=== PATIENT | female | born 1945 | race Caucasian/White ===

== ENCOUNTER → 2017-11-16 07:18 | Outpatient (CLI) | payer MEDICARE, BC, SELFPAY ==
[2017-11-16 10:25] LABS: Absolute Lymphocyte Count 2.52 X10^3/ul (0.83-4.51); Absolute Neutrophil Count 4.4 X10^3/uL (2.0-7.7); Basophil# 0.04 X10^3/uL; Basophil% 0.5 % (0-1); Eosinophil# 0.19 X10^3/uL; Eosinophils% 2.4 % (0-5); Hemoglobin 14.4 g/dl (12.0-15.0); Lymphocyte # 2.52 X10^3/ul (4.0); Lymphocyte % 32.4 % (19-41); Mean Corp Hgb Conc 33.5 g/gl (32-36); Mean Corpuscular Hgb 28.7 pg (27.0-32.0); Mean Corpuscular Volume 85.8 fL (81-99); Mean Platelet Vol. 10.7 fl (6.2-12.0); Monocyte# 0.62 X10^3/uL; Neutrophil # 4.39 X10^3/uL (2.7-7.7); Neutrophil % 56.6 % (47-70); Platelet Count 193 K/mm3 (150-450); RBC Distribution Width CV 13.8 % (11.6-14.6); RBC Distribution Width SD 43.2 fl (35.1-43.9); Red Blood Count 5.01 M/mm3 (4.2-5.4); White Blood Count 7.8 K/mm3 (4.4-11.0)
[2017-11-16 10:28] LABS: POSITIVE COUNT NO; POSITIVE DIFFERENTIAL NO; POSITIVE MORPHOLOGY NO
[2017-11-16 10:42] LABS: ALB/GLOB Ratio 0.9 RATIO (0.9-2.4); AST(SGOT) 25 U/L (15-37); Alanine Aminotransfer ALT/SGPT 53 U/L (13-56); Albumin, Serum 3.8 g/dL (3.2-5.0); Alkaline Phosphatase 99 U/L (45-117); Anion Gap 12 (5-15); BUN 18 mg/dL (7-18); BUN/Creat Ratio 21.1 RATIO (10-20); Calcium,Total 9.8 mg/dL (8.5-10.1); Chloride 97 mmol/L (98-107); Cholesterol 170 mg/dL (200); Creatinine, Serum 0.86 mg/dL (0.55-1.02); EST Glomerular Filtration Rate 70 mL/min (>60); Est Glom Filt Rate - Afr Amer 84 mL/min (>60); Globulin 4.1 g/dL (2.2-4.2); Glucose 230 mg/dL (74-106); High Density Lipoprotein 38 mg/dL; Potassium 3.9 mmol/L (3.5-5.1); Protein, Total 7.9 g/dL (6.4-8.2); Sodium Level 135 mmol/L (136-145); Triglycerides 194 mg/dL; Very Low Density Lipoprotein 39 mg/dL (5-40)
[2017-11-16 11:19] LABS: HIV - WCH Non-Reactive (Nonreactive)
[2017-11-16 14:04] LABS: Chlamydia Trachomatis by PCR Negative (Negative); Neisserai gonorrhoeae by PCR Negative (Negative); Probe Check PASS; Sample Adequacy Control PASS; Specimen Processing Control PASS
[2017-11-18 01:18] LABS: Rapid Plasmin Reagin (RPR) NONREACTIVE (NONREACTIVE)
== END ==
PROVIDERS: Family Provider Family Medicine; PCP Family Medicine; Visit Provider Family Medicine
DX: E11.65 Type 2 diabetes mellitus with hyperglycemia (principal); I10 Essential (primary) hypertension; E78.5 Hyperlipidemia, unspecified; R53.83 Other fatigue; Z20.9 Contact with and (suspected) exposure to unspecified communicable disease
CPT/HCPCS: 36415; 80053; 80061; 85025; 86592; 86703; 87491; 87591

== ENCOUNTER → 2019-02-07 07:02 | Outpatient (CLI) | payer MEDICARE, BC, SELFPAY ==
[2019-02-07 10:03] LABS: Absolute Lymphocyte Count 1.82 X10^3/uL (0.83-4.51); Basophil# 0.07 X10^3/uL; Eosinophil# 0.26 X10^3/uL; Eosinophils% 3.8 % (0-5); Hematocrit 42.2 % (37-47); Lymphocyte # 1.82 X10^3/ul (4.0); Lymphocyte % 26.6 % (19-41); Mean Corp Hgb Conc 33.2 g/dL (32-36); Mean Corpuscular Hgb 28.5 pg (27.0-32.0); Mean Corpuscular Volume 85.9 fL (81-99); Mean Platelet Vol. 10.7 fl (6.2-12.0); Monocyte# 0.69 X10^3/uL; Monocyte% 10.1 % (0-10); NRBC Flagged by Analyzer 0 % (0-5); Neutrophil # 3.97 X10^3/uL (2.7-7.7); Neutrophil % 58.2 % (47-70); Platelet Count 218 K/mm3 (150-450); RBC Distribution Width SD 43.8 fl (35.1-43.9); Red Blood Count 4.91 M/mm3 (4.2-5.4); White Blood Count 6.8 K/mm3 (4.4-11.0)
[2019-02-07 10:17] LABS: ALB/GLOB Ratio 1.2 RATIO (0.9-2.4); AST(SGOT) 17 U/L (15-37); Alanine Aminotransfer ALT/SGPT 29 U/L (13-56); Alkaline Phosphatase 91 U/L (45-117); Anion Gap 8 (5-15); BUN 21 mg/dL (7-18); BUN/Creat Ratio 25.4 RATIO (10-20); Calcium,Total 9.4 mg/dL (8.5-10.1); Chloride 101 mmol/L (98-107); Cholesterol 208 mg/dL (200); Creatinine, Serum 0.83 mg/dL (0.55-1.02); EST Glomerular Filtration Rate 72 mL/min (>60); Est Glom Filt Rate - Afr Amer 87 mL/min (>60); Globulin 3.3 g/dL (2.2-4.2); Glucose 153 mg/dL (74-106); High Density Lipoprotein 46 mg/dL; Potassium 3.9 mmol/L (3.5-5.1); Protein, Total 7.3 g/dL (6.4-8.2); Sodium Level 134 mmol/L (136-145); Triglycerides 108 mg/dL; Very Low Density Lipoprotein 22 mg/dL (5-40)
[2019-02-07 10:38] LABS: Microalbumin,Random Urine 13.1 mg/L (NO RANGE EST.); Microalbumin:Creatinine Ratio 15.5 mg/g CRE (<30 mg/g CRE)
== END ==
PROVIDERS: Family Provider Family Medicine; PCP Family Medicine; Referring Provider Family Medicine; Visit Provider Family Medicine
DX: E78.5 Hyperlipidemia, unspecified (principal); E11.9 Type 2 diabetes mellitus without complications; Z51.81 Encounter for therapeutic drug level monitoring
CPT/HCPCS: 36415; 80053; 80061; 82043; 82570; 83036; 85025

== ENCOUNTER → 2020-02-06 11:23 | Outpatient (CLI) | payer MEDICARE, BC, SELFPAY ==
[2020-02-06 15:54] LABS: Vitamin B12 1890 pg/mL (211-911)
[2020-02-06 15:58] LABS: Hemoglobin A1c 6.3 % (3.8-5.6)
[2020-02-06 16:02] LABS: ALB/GLOB Ratio 1.2 RATIO (0.9-2.4); AST(SGOT) 15 U/L (15-37); Alanine Aminotransfer ALT/SGPT 29 U/L (13-56); Albumin, Serum 4.1 g/dL (3.2-5.0); Alkaline Phosphatase 83 U/L (45-117); Anion Gap 9 (5-15); BUN 15 mg/dL (7-18); BUN/Creat Ratio 23.2 RATIO (10-20); CRP < 2.90 mg/L (0.0-3.0); Calcium,Total 9.4 mg/dL (8.5-10.1); Chloride 98 mmol/L (98-107); Cholesterol 198 mg/dL (200); Creatinine, Serum 0.65 mg/dL (0.55-1.02); EST Glomerular Filtration Rate 95 mL/min (>60); Est Glom Filt Rate - Afr Amer 115 mL/min (>60); Globulin 3.5 g/dL (2.2-4.2); Glucose 140 mg/dL (74-106); High Density Lipoprotein 53 mg/dL; Iron 97 ug/dL (50-170); Potassium 3.7 mmol/L (3.5-5.1); Protein, Total 7.6 g/dL (6.4-8.2); Sodium Level 132 mmol/L (136-145); Triglycerides 130 mg/dL; Very Low Density Lipoprotein 26 mg/dL (5-40)
[2020-02-06 17:34] LABS: Erythrocyte Sedimentation Rate 27 mm/hr (0-30)
== END ==
PROVIDERS: PCP Family Medicine; Visit Provider Family Medicine
DX: E11.9 Type 2 diabetes mellitus without complications (principal); E78.5 Hyperlipidemia, unspecified; D64.9 Anemia, unspecified; M25.50 Pain in unspecified joint
CPT/HCPCS: 36415; 80053; 80061; 82607; 83036; 83540; 84550; 85652; 86140

== ENCOUNTER 2021-05-28 16:38 | Inpatient (IN) | payer MEDICARE, BC, SELFPAY ==
[2021-05-28 16:42] VITALS: BP 210/95; PULSE 92; RESP 14; TEMP 36.4; O2SAT 98; BMI 37.0
--- NOTE | 2021-05-28 16:47 | EKG12_ITS ---
Test Reason : Blood Pressure : / mmHG Vent. Rate : 079 BPM Atrial Rate : 079 BPM P-R Int : 130 ms QRS Dur : 074 ms QT Int : 390 ms P-R-T Axes : -15 000 038 degrees QTc Int : 447 ms Normal sinus rhythm Normal ECG No previous ECGs available Confirmed by ALFRED MENDEZ, VIKAS ([id number]), editorial clerk TONO PELAEZ ([id number]) on 05/29/2021 2:47:42 PM Referred By: DANILO Confirmed By:VIKAS SIMON MD
--- NOTE | 2021-05-28 17:10 | NURSING ---
NO OLD EKGS
--- NOTE | 2021-05-28 17:20 | CT_ITS ---
STUDY: CT BRAIN WITHOUT CONTRAST REASON FOR EXAM: Female, 75 years old. confusion TECHNIQUE: Transaxial CT imaging of the brain was performed without administration of intravenous contrast material. Individualized dose optimization techniques were used for this CT. COMPARISON: None FINDINGS: Normal calvarium. Normal soft tissues. Normal size ventricles and extra-axial spaces for the patient''s age. There are areas of decreased attenuation within the white matter tracts of the supratentorial brain, consistent with microvascular disease changes. 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 Normal basal ganglia and thalami. Normal brainstem. Normal cerebellum. There is no intracranial hemorrhage. There are no findings of an acute ischemic infarction. Normal visualized paranasal sinuses. ASPECTS 10 CT/Brain/Head without Contrast IMPRESSION: There are no acute intracranial findings. Electronically Signed: Vitor García MD at 17:49 EDT ,
[2021-05-28 17:21] VITALS: BP 169/76; PULSE 76; RESP 19; O2SAT 97
--- NOTE | 2021-05-28 17:26 | EDS_ITS ---
HPI <TATE Guardado - Last Filed: 05/28/21 19:35> History of Present Illness Chief Complaint: Neuro S/Sx Narrative Narrative: 75-year-old female with history of hypertension, diabetes presents to the emergency department with complaints of bilateral hand numbness, right leg weakness, per her son, she is slower to respond than usual. Patient did receive Avastin injectable into her left eye on Tuesday, patient states that yesterday around 12 PM, she developed bilateral hand numbness, per the son, she was having right leg weakness which was giving out. Patient also has been having more confusion-like symptoms since yesterday at noon. Per her son, she is normally very smart, alert or x4, he states that she is hard to have a conversation with, gets confused easily. She denies any fevers chills nausea vomiting. Denies any trauma. PFSH <TATE Guardado - Last Filed: 05/28/21 19:35> PFSH Medical History Diabetes Hypertension Non-smoker Home Medications atenolol 25 mg PO BID 05/28/21 [History Last Taken 05/28/21] glimepiride 4 mg PO DAILY 05/28/21 [History Last Taken 05/28/21] metformin 1,000 mg PO BID 05/28/21 [History Last Taken 05/28/21] sitagliptin [Januvia] 100 mg PO DAILY 05/28/21 [History Last Taken 05/28/21] triamterene-hydrochlorothiazid 1 cap PO DAILY 05/28/21 [History Last Taken ] Allergy/AdvReac Type Severity Reaction Status Date / Time No Known Allergies Allergy Verified 05/28/21 16:44 Social History Smoking Status: Never smoker ROS <TATE Guardado - Last Filed: 05/28/21 19:35> ROS ED ROS Narrative Constitutional: Negative for fever, chills, weight loss or gain. Positive for weakness Eyes: Negative for vision loss, vision change, double vision ENT: Negative for any hearing changes, ringing in the ears, discharge, pain Nose: Negative for any congestion, runny nose, sinus pain, allergies Throat: Negative for any sore throat, swelling, voice changes, Cardiovascular: Negative for any chest pain, tightness, palpitations, racing heartbeat Respiratory: Negative for any cough, sputum production, hemoptysis, shortness of breath, shortness of breath on exertion, Gastrointestinal: Negative for any abdominal pain, nausea, vomiting, diarrhea, constipation, blood in stool, blood in vomit : Negative for any urinary frequency, incontinence, dysuria, retention, blood in urine Muscle skeletal: Negative for any muscle joint pain, stiffness, myalgias, arthralgias, neck pain, back pain Neurological: Negative for any headache, dizziness, syncope. Positive for numbness, tingling to bilateral hands, right leg weakness, slow to respond, more confusion Skin: Negative for any rashes, lumps, itching, abrasions, lacerations Psychiatric: Negative for any depression, anxiety, stress, suicidal ideation, homicidal ideation Hematologic: Negative for any easy bruising, excessive bruising, easy bleeding Allergies: Negative for any eczema, hives, rash EXAM <TATE Guardado - Last Filed: 05/28/21 19:35> Physical Exam Narrative Exam Narrative: Patient does arrive alert and oriented, patient does appear slow to respond and is vague with her details. Per the son, this is not like her normal she is very talkative and on top of things. Const Vital Signs: 05/28/21 16:42 05/28/21 17:21 05/28/21 18:45 Temperature 97.6 F L Temperature Source Temporal Pulse Rate 92 76 79 Respiratory Rate 14 19 H 22 H Blood Pressure 210/95 H 169/76 H 189/95 H Blood Pressure Mean 133 107 126 Pulse Ox 98 97 99 Oxygen Delivery Method Room Air Room Air Room Air Positive well nourished and well developed General Appearance ED: well developed HEENT Reports moist mucous membranes Eyes PERRL and EOMs intact bilaterally Eyes Narrative: Negative for any palsy Neck no lymphadenopathy and supple Chest Wall inspection of chest normal and palpation of chest normal Resp normal respiratory effort and clear to auscultation bilaterally Cardio regular rate, regular rhythm and no murmurs GI normal to inspection, nondistended, normoactive bowel sounds, non-tender and non-distended Inspection: abdominal distention Palpation: soft Back/Spine no CVA tenderness Extremity normal to inspection Extremity Narrative: Patient is full range of motion of her upper and lower extremities. Neuro oriented x3, CN's II-XII intact bilaterally and moves all extremities Neuro Narrative: Patient is alert oriented x3 however she is slow to respond, a poor historian which per her son is abnormal, neurological exam was completed, NIH score of 1 for the aphasia Sensorium / Orientation: alert Meningeal Signs: no meningeal signs Cranial Nerves: CN normal except as noted Coordination / Balance: [id number] test normal and [id number] test normal Speech: speech normal Psych mental status grossly normal Skin no rashes or lesions noted <Dr. Tracy Kay MD - Last Filed: 05/28/21 19:37> Physical Exam Const Vital Signs: 05/28/21 16:42 05/28/21 17:21 05/28/21 18:45 Temperature 97.6 F L Temperature Source Temporal Pulse Rate 92 76 79 Respiratory Rate 14 19 H 22 H Blood Pressure 210/95 H 169/76 H 189/95 H Blood Pressure Mean 133 107 126 Pulse Ox 98 97 99 Oxygen Delivery Method Room Air Room Air Room Air [facility] <TATE Guardado - Last Filed: 05/28/21 19:35> [facility] MDM Narrative Medical decision making narrative: Patient appears confused, vital signs are stable. Patient presents to the emergency department with complaints of bilateral hand numbness, altered mental status as well as right leg weakness. Patient did receive a full neurological work-up. Patient's laboratory studies showed a normal CBC, patient's BMP showed a slight hyponatremia with a sodium of 132, patient's urinalysis was negative for any infection. Patient did receive a CT scan of the brain which showed no acute intracranial findings, patient had normal examination of the chest. Patient did have a total NIH of 1 just for the aphasia during initial exam. Patient on reexam had NIH score of 0. Patient was slightly hypertensive with a blood pressure of 189/90. I do believe the patient needs to be admitted to the hospital for this altered mental status, paresthesias. Patient will be admitted to PCU for observation for CVA versus TIA, paresthesias, altered mental status. Patient is stable for admission. Lab Data Labs: Laboratory Results - last 24 hr 05/28/21 05/28/21 05/28/21 17:08 17:08 17:08 WBC 7.9 RBC 4.86 Hgb 13.9 Hct 40.6 MCV 83.5 MCH 28.6 MCHC 34.2 RDW Std Deviation 41.9 RDW Coeff of Anh 13.6 Plt Count 225 MPV 11.0 Immature Gran % (Auto) 0.400 Neut % (Auto) 62.5 Lymph % (Auto) 26.3 [place] % (Auto) 9.1 Eos % (Auto) 0.9 Baso % (Auto) 0.8 Absolute Neuts (auto) 4.9 Absolute Lymphs (auto) 2.07 Nucleated RBC % 0 PT 13.1 INR 1.1 APTT 25.8 Sodium 132 L Potassium 4.1 Chloride 98 Carbon Dioxide 26.0 Anion Gap 8 BUN 18 Creatinine 0.79 Estim Creat Clear Calc 35.45 Est GFR (MDRD) Af Amer 92 Est GFR (MDRD) Non-Af 76 BUN/Creatinine Ratio 22.9 H Glucose 153 H Calcium 9.4 Urine Color Urine Clarity Urine pH Ur Specific [place] Urine Protein Urine Glucose (UA) Urine Ketones Urine Occult Blood Urine Nitrite Urine Bilirubin Urine Urobilinogen Ur Leukocyte Esterase Urine RBC Urine WBC Ur Squamous Epith Cells Urine Bacteria Urine Mucus POC Glucose 05/28/21 05/28/21 17:59 18:30 WBC RBC Hgb Hct MCV MCH MCHC RDW Std Deviation RDW Coeff of Anh Plt Count MPV Immature Gran % (Auto) Neut % (Auto) Lymph % (Auto) [place] % (Auto) Eos % (Auto) Baso % (Auto) Absolute Neuts (auto) Absolute Lymphs (auto) Nucleated RBC % PT INR APTT Sodium Potassium Chloride Carbon Dioxide Anion Gap BUN Creatinine Estim Creat Clear Calc Est GFR (MDRD) Af Amer Est GFR (MDRD) Non-Af BUN/Creatinine Ratio Glucose Calcium Urine Color Yellow Urine Clarity Clear Urine pH 6.5 Ur Specific [place] 1.015 Urine Protein 15 H Urine Glucose (UA) Normal Urine Ketones 5 H Urine Occult Blood Negative Urine Nitrite Negative Urine Bilirubin Negative Urine Urobilinogen Normal Ur Leukocyte Esterase Negative Urine RBC 0 SEEN Urine WBC 0 SEEN Ur Squamous Epith Cells 0-5 SEEN Urine Bacteria 0 SEEN Urine Mucus 0 SEEN POC Glucose 146 H Radiography Diagnostic Testing: Clinical Impression(s) from Imaging Studies Brain CT 05/28/21 17:20 IMPRESSION: There are no acute intracranial findings. Electronically Signed: Vitor García MD at 17:49 EDT , Chest X-Ray 05/28/21 19:00 IMPRESSION: Normal x-ray examination of the chest. Electronically Signed: Anthony Minor MD at 19:24 EDT , <Dr. Tracy Kay MD - Last Filed: 05/28/21 19:37> [facility] Lab Data Labs: Laboratory Results - last 24 hr 05/28/21 05/28/21 05/28/21 17:08 17:08 17:08 WBC 7.9 RBC 4.86 Hgb 13.9 Hct 40.6 MCV 83.5 MCH 28.6 MCHC 34.2 RDW Std Deviation 41.9 RDW Coeff of Anh 13.6 Plt Count 225 MPV 11.0 Immature Gran % (Auto) 0.400 Neut % (Auto) 62.5 Lymph % (Auto) 26.3 [place] % (Auto) 9.1 Eos % (Auto) 0.9 Baso % (Auto) 0.8 Absolute Neuts (auto) 4.9 Absolute Lymphs (auto) 2.07 Nucleated RBC % 0 PT 13.1 INR 1.1 APTT 25.8 Sodium 132 L Potassium 4.1 Chloride 98 Carbon Dioxide 26.0 Anion Gap 8 BUN 18 Creatinine 0.79 Estim Creat Clear Calc 35.45 Est GFR (MDRD) Af Amer 92 Est GFR (MDRD) Non-Af 76 BUN/Creatinine Ratio 22.9 H Glucose 153 H Calcium 9.4 Urine Color Urine Clarity Urine pH Ur Specific [place] Urine Protein Urine Glucose (UA) Urine Ketones Urine Occult Blood Urine Nitrite Urine Bilirubin Urine Urobilinogen Ur Leukocyte Esterase Urine RBC Urine WBC Ur Squamous Epith Cells Urine Bacteria Urine Mucus POC Glucose 05/28/21 05/28/21 17:59 18:30 WBC RBC Hgb Hct MCV MCH MCHC RDW Std Deviation RDW Coeff of Anh Plt Count MPV Immature Gran % (Auto) Neut % (Auto) Lymph % (Auto) [place] % (Auto) Eos % (Auto) Baso % (Auto) Absolute Neuts (auto) Absolute Lymphs (auto) Nucleated RBC % PT INR APTT Sodium Potassium Chloride Carbon Dioxide Anion Gap BUN Creatinine Estim Creat Clear Calc Est GFR (MDRD) Af Amer Est GFR (MDRD) Non-Af BUN/Creatinine Ratio Glucose Calcium Urine Color Yellow Urine Clarity Clear Urine pH 6.5 Ur Specific [place] 1.015 Urine Protein 15 H Urine Glucose (UA) Normal Urine Ketones 5 H Urine Occult Blood Negative Urine Nitrite Negative Urine Bilirubin Negative Urine Urobilinogen Normal Ur Leukocyte Esterase Negative Urine RBC 0 SEEN Urine WBC 0 SEEN Ur Squamous Epith Cells 0-5 SEEN Urine Bacteria 0 SEEN Urine Mucus 0 SEEN POC Glucose 146 H Radiography Diagnostic Testing: Clinical Impression(s) from Imaging Studies Brain CT 05/28/21 17:20 IMPRESSION: There are no acute intracranial findings. Electronically Signed: Vitor García MD at 17:49 EDT , Chest X-Ray 05/28/21 19:00 IMPRESSION: Normal x-ray examination of the chest. Electronically Signed: Anthony Minor MD at 19:24 EDT , Treatment and Re-Evaluation Narrative: Patient seen and evaluated with OSMEL. I personally interviewed and examined the patient. I was involved in all aspects of patient's orders, interpretation of results, and treatment. Patient presents with son secondary to confusion and slurred speech. She also reports having tingling in bilateral hands over the past couple days. She does report that her right leg feels it gives out on her when she is walking. Patient sitting upright in bed no acute distress. Head and neck examination unremarkable other than slight conjunctival hemorrhage on the left after recent eye injection. Heart is regular rate and rhythm. Lung sounds are clear. Abdomen is soft and nontender. Neuro exam reveals slow purposeful speech. Her NIH is 1 at this time. Lab work, urinalysis, head CT obtained. Chest x-ray ordered. Chest x-ray per my interpretation reveals no focal infiltrate. Head CT reveals chronic changes only. Lab work and urinalysis revealed no acute abnormalities. Patient discussed with hospitalist regarding admission for stroke rule out. Discharge Plan Dx/Rx/DC Orders Clinical Impression: Acute CVA (cerebrovascular accident), Brain TIA, Arm paresthesia, left, Arm paresthesia, right, Acute alteration in mental status Disposition Disposition: Acute Care Hospital [facility]
[2021-05-28 17:32] LABS: Anion Gap 8 (5-15); BUN 18 mg/dL (7-18); BUN/Creat Ratio 22.9 RATIO (10-20); Calcium,Total 9.4 mg/dL (8.5-10.1); Chloride 98 mmol/L (98-107); Creatinine, Serum 0.79 mg/dL (0.55-1.02); EST Glomerular Filtration Rate 76 mL/min (>60); Est Glom Filt Rate - Afr Amer 92 mL/min (>60); Estimated Creatinine Clearance 35.45 ml/min; Glucose 153 mg/dL (74-106); Potassium 4.1 mmol/L (3.5-5.1); Sodium Level 132 mmol/L (136-145)
[2021-05-28 17:45] LABS: Absolute Lymphocyte Count 2.07 X10^3/uL (0.83-4.51); Absolute Neutrophil Count 4.9 X10^3/uL (2.0-7.7); Basophil# 0.06 X10^3/uL; Basophil% 0.8 % (0-1); Eosinophil# 0.07 X10^3/uL; Eosinophils% 0.9 % (0-5); Hematocrit 40.6 % (37-47); Hemoglobin 13.9 g/dL (12.0-15.0); Lymphocyte # 2.07 X10^3/ul (0.83-4.51); Lymphocyte % 26.3 % (19-41); Mean Corp Hgb Conc 34.2 g/dL (32-36); Mean Corpuscular Hgb 28.6 pg (27.0-32.0); Mean Corpuscular Volume 83.5 fL (81-99); Monocyte# 0.72 X10^3/uL; Monocyte% 9.1 % (0-10); NRBC Flagged by Analyzer 0 % (0-5); Neutrophil # 4.93 X10^3/uL (2.7-7.7); Neutrophil % 62.5 % (47-70); Platelet Count 225 K/mm3 (150-450); RBC Distribution Width CV 13.6 % (11.6-14.6); RBC Distribution Width SD 41.9 fl (35.1-43.9); Red Blood Count 4.86 M/mm3 (4.2-5.4); White Blood Count 7.9 K/mm3 (4.4-11.0)
[2021-05-28 17:46] LABS: International Normalized Ratio 1.1; Prothrombin Time (Protime)PT. 13.1 SECONDS (11.7-14.9)
[2021-05-28 17:47] LABS: Partial Thromboplast Time 25.8 Seconds (24.1-36.2)
[2021-05-28 18:06] LABS: Bedside Glucose 146 mg/dL (74-106)
[2021-05-28] MEDS: 0.9% Normal Saline 1,000 ML 1000 ML IV (18:17)
[2021-05-28 18:45] VITALS: BP 189/95; PULSE 79; RESP 22; O2SAT 99
[2021-05-28 18:50] LABS: Bacteria 0 SEEN /hpf (None Seen); Mucous, Urine 0 SEEN /hpf (<or=2+); Red Blood Cells-Urine 0 SEEN /hpf (0-5); White Blood Cells 0 SEEN /hpf (0-5)
--- NOTE | 2021-05-28 19:00 | RAD_ITS ---
STUDY: X-RAY CHEST REASON FOR EXAM: Female, 75 years old. Stroke TECHNIQUE: Single frontal view of the chest. COMPARISON: None. FINDINGS: The lungs are clear and expanded. There is no demonstrated pleural abnormality. Normal size heart. Normal mediastinum and bernardo. Normal visualized pulmonary arteries. Normal visualized aortic arch and descending thoracic aorta. Normal visualized thoracic spine. Normal visualized ribs, clavicles, and shoulders. There is no demonstrated abnormality of the visualized soft tissue structures of the upper abdomen. RAD/Chest 1 View (Portable) IMPRESSION: Normal x-ray examination of the chest. Electronically Signed: Anthony Minor MD at 19:24 EDT ,
[2021-05-28 19:02] LABS: Color, Urine Yellow (Yellow); Glucose, Dipstick Normal (Normal); Ketone-Dipstick 5 mg/dl (Negative); Leukocyte Esterase-Dipstick Negative /ul (Negative); Nitrite-Dipstick Negative (Negative); Occult Blood-Urine Negative /ul (Negative); Protein-Dipstick 15 mg/dl (Negative); Specific Gravity, Urine 1.015 (1.002-1.030); Urine Bilirubin Dipstick Negative (Negative); Urine Clarity Clear (Clear); Urine Urobilinogen Normal (Normal); Urine pH 6.5 (5.0 - 8.0)
[2021-05-28 19:12] LABS: Squamous Epithelial Cells - UA 0-5 SEEN /hpf (5-10)
--- NOTE | 2021-05-28 19:34 | PCM.HP.STD ---
HPI - General General Date of Admission: 05/28/21 HPI Narrative ISRAEL SANDOVAL, is a 75 F with a significant history of hypertension; diabetes mellitus and macular edema of the left eye who received Avastin injection in her left eye presenting with numbness in her bilateral hands and in her bilateral feet. The exact time line is unclear as patient is confused. Also it is not clear if patient symptoms of numbness is persistent as patient is unable to give consistent history. While patient stated that her symptoms started about 2 hours after Avastin injection and that would have been 3 days ago, her son stated that patient symptoms started about 24 hours after Avastin injection. Associated with patient symptoms is aphasia. Patient's son who was at the bedside stated that typical patient is very sharp in her thinking however patient has been incoherent and is unlike her usual self. Patient reports bilateral leg weakness. It is unclear whether she has weakness in the arms. However reportedly she sees a chiropractor for shoulder issue and a pinched nerve in her neck. Patient has generalized weakness. [facility] Medical History Diabetes Hypertension Non-smoker Home Medications atenolol 25 mg PO BID 05/28/21 [History Last Taken 05/28/21] glimepiride 4 mg PO DAILY 05/28/21 [History Last Taken 05/28/21] metformin 1,000 mg PO BID 05/28/21 [History Last Taken 05/28/21] sitagliptin [Januvia] 100 mg PO DAILY 05/28/21 [History Last Taken 05/28/21] triamterene-hydrochlorothiazid 1 cap PO DAILY 05/28/21 [History Last Taken 05/28/21] Allergy/AdvReac Type Severity Reaction Status Date / Time No Known Allergies Allergy Verified 05/28/21 16:44 Family History Other Diabetes Surgical History History of tonsillectomy Social History Smoking Status: Never smoker ROS ROS Narrative Constitutional: Denies fever, chills, anorexia and change in weight Eyes: Denies blurry vision, change in eye color, change in vision, discharge from eye(s), double vision, erythema, eye pain, loss of vision or other HEENT: Denies abnormal hearing, dysphagia, ear pain, epistaxis, headache(s), hearing loss, nasal congestion, nasal discharge, post nasal drip, sinus pressure, sore throat or other Cardiovascular: Denies chest pain or palpitations. Denies dyspnea on exertion, orthopnea and paroxysmal nocturnal dyspnea Respiratory/Chest: Denies cough, excessive phlegm production, shortness of breath with exertion and wheezing Gastrointestinal: Denies abdominal pain, coffee ground emesis, constipation, diarrhea, dyspepsia, hematemesis, hematochezia, loose stools, melena, nausea, vomiting or other Genitourinary: Denies burning urination, difficulty urinating, dysuria, hematuria, nocturia, urinary frequency, urinary hesitancy, urinary incontinence, urinary urgency or other Musculoskeletal: Reports shoulder pain and a pinched nerve in the neck. Neurologic: Reports numbness. With confusion. Reports difficulty in bringing her words up but without slurring her words speech. Denies seizure-like activity, seizures, syncope, tremor(s) or other Psychiatric: Denies anxiety, depression, homicidal ideation, suicidal ideation or other Endocrinology: Denies change in body appearance, cold intolerance, excessive sweating, heat intolerance, polydipsia, polyuria or other Hematologic/Lymphatic: Denies anemia, easy bleeding, easy bruising, lymphadenopathy or other Integumentary: Denies rashes Allergic/Immunologic: Denies rhinitis, hives, eczema, or other Vital Signs Vital Signs Vital Signs: 05/28/21 16:42 05/28/21 17:21 05/28/21 18:45 Temperature 97.6 F L Temperature Source Temporal Pulse Rate 92 76 79 Respiratory Rate 14 19 H 22 H Blood Pressure 210/95 H 169/76 H 189/95 H Blood Pressure Mean 133 107 126 Pulse Ox 98 97 99 Oxygen Delivery Method Room Air Room Air Room Air Weight Weight: 86 kg Body Mass Index (BMI) 37.0 Physical Exam Narrative Physical exam: General: Well-nourished, well-developed. Head: Normocephalic, atraumatic, no tenderness Eyes: Mild conjunctival injection of the left eye. Miotic pupil. Vision is grossly intact. EOMI ENT, no trauma, moist mucous membranes, no rhinorrhea Neck: Nontender, full range of motion, no spinal tenderness, deformities, step-off CVS: Regular rate and rhythm. S1-S2 present. No murmur, gallop or rub. Respiratory : clear to auscultation bilaterally, chest wall nontender, no wheezing Abdomen: Soft, nontender, nondistended, normal bowel sounds, no masses : Deferred Back: Nontender, no CVA tenderness, no midline spinal tenderness, deformities, step-offs Extremities: Nontender full range of motion, no trauma Skin: Normal color, no trauma, abrasions Neuro: Alert, oriented, cranial nerves II through XII grossly intact except pupil is constricted and very sluggishly react to light. Aphasic. No hyperreflexia throughout. No dysmetria with [id number] test and [id number] test. Psychiatry: Normal mood. Normal affect. Not depressed. Not anxious. Results Lab / Micro Data Result Diagrams: 05/28/21 17:08 05/28/21 17:08 Labs: Laboratory Results - last 24 hr 05/28/21 17:08: WBC 7.9, RBC 4.86, Hgb 13.9, Hct 40.6, MCV 83.5, MCH 28.6, MCHC 34.2, RDW Std Deviation 41.9, RDW Coeff of Anh 13.6, Plt Count 225, MPV 11.0, Immature Gran % (Auto) 0.400, Neut % (Auto) 62.5, Lymph % (Auto) 26.3, [place] % (Auto) 9.1, Eos % (Auto) 0.9, Baso % (Auto) 0.8, Absolute Neuts (auto) 4.9, Absolute Lymphs (auto) 2.07, Nucleated RBC % 0 05/28/21 17:08: PT 13.1, INR 1.1, APTT 25.8 05/28/21 17:08: Sodium 132 L, Potassium 4.1, Chloride 98, Carbon Dioxide 26.0, Anion Gap 8, BUN 18, Creatinine 0.79, Estim Creat Clear Calc 35.45, Est GFR (MDRD) Af Amer 92, Est GFR (MDRD) Non-Af 76, BUN/Creatinine Ratio 22.9 H, Glucose 153 H, Calcium 9.4 05/28/21 17:59: POC Glucose 146 H 05/28/21 18:30: Urine Color Yellow, Urine Clarity Clear, Urine pH 6.5, Ur Specific [place] 1.015, Urine Protein 15 H, Urine Glucose (UA) Normal, Urine Ketones 5 H, Urine Occult Blood Negative, Urine Nitrite Negative, Urine Bilirubin Negative, Urine Urobilinogen Normal, Ur Leukocyte Esterase Negative, Urine RBC 0 SEEN, Urine WBC 0 SEEN, Ur Squamous Epith Cells 0-5 SEEN, Urine Bacteria 0 SEEN, Urine Mucus 0 SEEN Radiology Impression Brain CT 05/28/21 17:20 IMPRESSION: There are no acute intracranial findings. Electronically Signed: Vitor García MD at 17:49 EDT , Chest X-Ray 05/28/21 19:00 IMPRESSION: Normal x-ray examination of the chest. Electronically Signed: Anthony Minor MD at 19:24 EDT , Assessment & Plan Assessment/Plan (1) Stroke-like symptoms: PLAN: Strokelike symptoms Although this could be acute stroke diagnoses include medication side effects. Serial NINDS NIH Scale ordered Head CT was visualized and independently interpreted and agree with allege interpretation of no acute intracranial findings. Lipid profile and A1c ordered. CBC was normal. Sodium is mildly reduced at 132. Trend CBC and CMP. Urinalysis is unrevealing. Physical therapy, occupational therapy and speech therapy to work with patient. N.p.o. until bedside swallow eval. Daily aspirin. High intensity statin ordered Permissive hypertension. Control blood pressure with labetalol for systolic blood pressure of more than 220 or diastolic blood pressure of more than 120. MRI/MRA of head; brain; and neck. Echocardiogram ordered. Diabetes mellitus Patient with hyperglycemia on presentation Metformin held. Januvia and glimepiride continued Accu-Chek QA [facility] with correction scale insulin ordered. Hypertension Blood pressure is not within goal However will allow permissive hypertension and hold home atenolol, triamterene?hydrochlorothiazide combo. As needed hydralazine and labetalol ordered for permissive hypertension. Trend blood pressure and adjust blood pressure medications. DVT prophylaxis: Subcutaneous Lovenox ordered Charges/Coding Visit Charges Inpatient E&M: 68863 Init Hosp L3
[2021-05-28 19:39] VITALS: BMI 34.6
[2021-05-28 19:43] VITALS: BP 173/76; PULSE 84; RESP 25; TEMP 36.6; O2SAT 99
[2021-05-28 20:10] VITALS: BP 176/76; PULSE 80; RESP 18; TEMP 36.6; O2SAT 97
--- NOTE | 2021-05-28 20:10 | ECHOD_ITS ---
Reason For Study: TIA/CVA Procedure This was a 2D Doppler, Color Flow transthoracic echocardiogram. Bubble study performed. The study was technically difficult. Exam performed portable in patient room. Left Ventricle Normal LV size. Left ventricular systolic function is normal. The estimated ejection fraction is 65 %. No evidence for diastolic dysfunction. No regional wall motion abnormalities noted. Right Ventricle Normal RV size. Normal systolic function. Atria The left atrium is mildly enlarged. Normal right atrium. No doppler evidence for ASD. Bubble contrast study negative for right to left interatrial shunt. Mitral Valve There is mild mitral annular calcification. Mild focal mitral valve calcification of the anterior leaflet. The mitral papillary muscle appears thickened and/or calcified. Mild (1+) mitral valve insufficiency. Tricuspid Valve Normal tricuspid valve. Trivial tricuspid valve insufficiency. Unable to estimate RV systolic pressure/pulmonary artery pressure due to technically difficult study. Aortic Valve Trisinus/trileaflet aortic valve. Mild focal aortic valve calcification. Pulmonic Valve The pulmonic valve is not well visualized. Mild (1+) pulmonic valve insufficiency. Great Vessels Normal sized aortic root. Calcified aortic root. Pericardium/Pleural No pericardial effusion. Medication Performed a rapid injection of agitated mix of 9 cc saline and 1cc air to assess for atrial septal defect. MMode/2D Measurements & Calculations LVIDd: 3.5 cm IVSd: 1.7 cm LA dimension: 3.8 cm LVIDs: 2.0 cm LVPWd: 1.1 cm FS: 43.0 % LAV(MOD-bp): 48.5 ml LA A4 area: 18.1 cm2 LAV(MOD-bp) Indexed: 26.2 ml/m2 LAV(MOD-sp2): 47.9 ml LAV(MOD-sp4): 48.8 ml Time Measurements MV dec time: 0.15 sec Doppler Measurements & Calculations MV E max rayray: 87.9 cm/sec Lat Peak E' Rayray: 6.6 cm/sec Med Peak E' Rayray: 6.9 cm/sec MV A max rayray: 108.9 cm/sec E/E' lat: 13.4 E/E' med: 12.7 MV E/A: 0.81 MV V2 max: 118.4 cm/sec MV P1/2t max rayray: 104.2 cm/sec Ao V2 max: 116.5 cm/sec MV max P.6 mmHg MV P1/2t: 60.0 msec Ao max P.4 mmHg MV V2 mean: 69.8 cm/sec MV dec slope: 508.5 cm/sec2 MV mean P.2 mmHg MV V2 VTI: 24.5 cm MVA(P1/2t): 3.7 cm2 LV V1 max: 77.1 cm/sec PA V2 max: 87.6 cm/sec LV V1 max P.4 mmHg ECHO/Echo Complete Interpretation Summary The study was technically difficult. Left ventricular systolic function is normal. The estimated ejection fraction is 65 %. The left atrium is mildly enlarged. There is mild mitral annular calcification. Mild focal mitral valve calcification of the anterior leaflet. The mitral papillary muscle appears thickened and/or calcified. Mild (1+) mitral valve insufficiency. Trivial tricuspid valve insufficiency. Mild focal aortic valve calcification. Mild (1+) pulmonic valve insufficiency. Calcified aortic root. Unable to estimate RV systolic pressure/pulmonary artery pressure due to techni rod difficult study. No evidence for diastolic dysfunction. Bubble contrast study negative for right to left interatrial shunt. Ordering Physician: Antonio Aquino Referring Physician: Tawnya Strauss Performed By: Prieto Thomas RCS
[2021-05-28 20:20] VITALS: BMI 36.3
[2021-05-28 20:26] VITALS: PULSE 88
[2021-05-28 22:25] LABS: Bedside Glucose 242 mg/dL (74-106)
[2021-05-28] MEDS: Insulin Lispro 100 UNIT/ML INSULN.PEN SC (22:28)
[2021-05-28] MEDS: 0.9% Saline Lock 10 ML Syringe IV (22:30)
[2021-05-29] VITALS (12 sets, daily range): BP systolic 147–186; BP diastolic 65–84; PULSE 72–92; RESP 16–18; TEMP 36.6–37; O2SAT 95–98; BMI 36.3
[2021-05-29] MEDS: Insulin Lispro 100 UNIT/ML INSULN.PEN SC ×4 (06:16→22:36)
[2021-05-29 06:25] LABS: Bedside Glucose 200 mg/dL (74-106)
[2021-05-29 07:14] LABS: Absolute Lymphocyte Count 1.63 X10^3/uL (0.83-4.51); Absolute Neutrophil Count 3.5 X10^3/uL (2.0-7.7); Basophil# 0.05 X10^3/uL; Basophil% 0.8 % (0-1); Eosinophil# 0.09 X10^3/uL; Eosinophils% 1.5 % (0-5); Hematocrit 40.1 % (37-47); Hemoglobin 13.8 g/dL (12.0-15.0); Lymphocyte # 1.63 X10^3/ul (0.83-4.51); Lymphocyte % 27.6 % (19-41); Mean Corp Hgb Conc 34.4 g/dL (32-36); Mean Corpuscular Hgb 28.6 pg (27.0-32.0); Mean Corpuscular Volume 83.2 fL (81-99); Mean Platelet Vol. 10.3 fl (6.2-12.0); Monocyte# 0.65 X10^3/uL; NRBC Flagged by Analyzer 0 % (0-5); Neutrophil # 3.46 X10^3/uL (2.7-7.7); Neutrophil % 58.6 % (47-70); Platelet Count 157 K/mm3 (150-450); RBC Distribution Width CV 13.4 % (11.6-14.6); RBC Distribution Width SD 40.6 fl (35.1-43.9); Red Blood Count 4.82 M/mm3 (4.2-5.4); White Blood Count 5.9 K/mm3 (4.4-11.0)
[2021-05-29 07:45] LABS: ALB/GLOB Ratio 1.1 RATIO (0.9-2.4); AST(SGOT) 21 U/L (15-37); Alanine Aminotransfer ALT/SGPT 36 U/L (13-56); Albumin, Serum 3.7 g/dL (3.2-5.0); Alkaline Phosphatase 74 U/L (45-117); Anion Gap 6 (5-15); BUN 13 mg/dL (7-18); BUN/Creat Ratio 22.7 RATIO (10-20); Calcium,Total 8.7 mg/dL (8.5-10.1); Chloride 101 mmol/L (98-107); Cholesterol 190 mg/dL (200); Creatinine, Serum 0.57 mg/dL (0.55-1.02); EST Glomerular Filtration Rate 110 mL/min (>60); Est Glom Filt Rate - Afr Amer 133 mL/min (>60); Estimated Creatinine Clearance 35.45 ml/min; Globulin 3.4 g/dL (2.2-4.2); Glucose 177 mg/dL (74-106); High Density Lipoprotein 41 mg/dL; Potassium 3.6 mmol/L (3.5-5.1); Protein, Total 7.1 g/dL (6.4-8.2); Sodium Level 133 mmol/L (136-145); Triglycerides 125 mg/dL; Very Low Density Lipoprotein 25 mg/dL (5-40)
[2021-05-29] MEDS: LINAGLIPTIN 5 MG TABLET PO (08:04)
[2021-05-29] MEDS: Enoxaparin 40 MG/0.4 ML Syringe SC (08:04)
[2021-05-29] MEDS: Aspirin 81 MG TAB.CHEW PO (08:04)
[2021-05-29] MEDS: Glimepiride 4 MG Tablet PO (08:04)
[2021-05-29 09:12] LABS: Hemoglobin A1c 7.3 % (3.8-5.6)
[2021-05-29 11:21] LABS: Bedside Glucose 212 mg/dL (74-106)
--- NOTE | 2021-05-29 12:18 | MRI_ITS ---
STUDY: MRA OF THE HEAD WITHOUT CONTRAST REASON FOR EXAM: Female, 75 years old. cva confusion TECHNIQUE: 3-D [id number] (TOF) imaging was performed with MIPs. The study was performed unenhanced. Imaging starts from the skull base and terminates in the periventricular regions. COMPARISON: MRI of the brain dated MAY 29, 2021. FINDINGS: Diminished/absent vascularity in the old infarcted parenchyma in the medial aspect of the left occipital lobe where there is cystic encephalomalacia/volume loss. Acute infarct in the superior medial/parasagittal region of the left frontal lobe is in the A3 perforating branch distribution of the anterior cerebral artery. Normal bilateral petrous carotid arteries. Normal right cavernous carotid artery with a normal supraclinoid bifurcation. Normal left cavernous carotid artery with a normal supraclinoid bifurcation. Normal right A1 segments of the anterior cerebral artery. Normal left A1 segments of the anterior cerebral artery. Normal intact anterior communicating artery (ACOM). Normal bilateral A2 segments of the anterior cerebral arteries. Normal right M1 and M2 segments of the middle cerebral arteries, with a normal M1 bifurcation. Normal left M1 and M2 segments of the middle cerebral arteries, with a normal M1 bifurcation. There is non-visualization of the right posterior communicating artery (PCOM). There is non-visualization of the left posterior communicating artery (PCOM). Normal bilateral vertebral arteries. Normal basilar artery with a normal basilar bifurcation. The visualized bilateral superior cerebellar (SCA) arteries are normal. Normal bilateral P1, P2 and visualized P3 segments of the posterior cerebral arteries. There is no demonstrated aneurysm of the [place]. There is no major vessel occlusion or hemodynamically significant stenosis. MRI/MRA Head ONLY without Contrast IMPRESSION: 1. Diminished/absent vascularity in the old infarcted parenchyma in the medial aspect of the left occipital lobe where there is cystic encephalomalacia/volume loss. 2. Acute infarct in the superior medial/parasagittal region of the left frontal lobe is in the A3 perforating branch distribution of the anterior cerebral artery. 3. There is no major vessel occlusion or hemodynamically significant stenosis. Electronically Signed: Jose Angel Zhang MD at 15:02 EDT ,
--- NOTE | 2021-05-29 12:27 | MRI_ITS ---
We are attempting to reach an attending provider to discuss findings. An addendum with communication details will be sent when the communication is complete. STUDY: MRI BRAIN WITHOUT CONTRAST REASON FOR EXAM: Female, 75 years old. cva TECHNIQUE: Standardized multiplanar fat and water weighted pulse sequences were obtained. COMPARISON: Head CT dated May 28, 2021 FINDINGS: Small to moderate size acute infarct of the superior medial/parasagittal region of the left frontal lobe extending into the centrum semiovale. A small component of the infarct also involves the left anterior aspect of the corpus callosum. No additional acute infarcts are present. There is mild cerebral atrophy with widening of the extra-axial spaces and ventricular dilatation. There are a limited number of small white matter hyperintensities, distributed throughout the deep white matter tracts of the cerebral hemispheres, consistent with mild chronic white matter ischemic changes. Mild parenchymal loss and gliosis of the left occipital lobe related to an old infarct. Normal T2* images of the brain without demonstrated susceptibility artifact. There is no demonstrated hemosiderin stain. Normal bilateral basal ganglia. Normal thalami. There is no extra-axial fluid accumulation. Normal flow voids within the major intracranial circulation suggesting patency by spin echo criteria. Normal sella turcica, pituitary gland, infundibular stalk, optic chiasm and hypothalamus. Normal tectal plate and pineal gland. Normal midbrain, enma and medulla. Normal cerebellum. Normal basal cisterns. Normal bilateral temporal bones. Normal bilateral internal auditory canals. No demonstrated orbital abnormality, within the constraints of a routine brain study. Normal visualized paranasal sinuses. Normal calvarium and skull base. Normal visualized soft tissue structures. Normal visualized upper cervical spine. MRI/Brain without Contrast IMPRESSION: 1. Small to moderate size acute infarct of the superior medial/parasagittal region of the left frontal lobe extending into the centrum semiovale. A small component of the infarct also involves the left anterior aspect of the corpus callosum. No additional acute infarcts are present. 2. Involutional changes of the brain, as described above. Electronically Signed: Jose Angel Zhang MD at 14:45 EDT ,
--- NOTE | 2021-05-29 12:52 | MRI_ITS ---
STUDY: MRA NECK WITHOUT CONTRAST REASON FOR EXAM: Female, 75 years old. cva TECHNIQUE: Source images were obtained, MIPs were performed. The study was performed unenhanced. COMPARISON: MRI and MRA of the brain dated MAY 29, 2021. FINDINGS: RIGHT CAROTID ARTERIES: Normal right common carotid artery (CCA). There is mild atherosclerotic plaque formation with minimal narrowing of the right carotid bulb. Normal origin of the right internal carotid (ICA) artery without a hemodynamically significant stenosis. Normal visualized cervical portion of the right internal carotid artery. Normal origin of the right external carotid artery (ECA). LEFT CAROTID ARTERIES: Normal left common carotid artery (CCA). Normal left common carotid bulb. Normal origin of the left internal carotid (ICA) artery without a hemodynamically significant stenosis. Normal visualized cervical portion of the left internal carotid artery. Normal origin of the left external carotid artery (ECA). VERTEBRAL ARTERIES: Normal antegrade flow within the bilateral vertebral artery without a hemodynamically significant stenosis. MRI/MRA Neck without Contrast IMPRESSION: 1. No occlusion or hemodynamically significant stenosis of the bilateral cervical carotid and vertebral arteries. Electronically Signed: Jose Angel Zhang MD at 14:08 EDT ,
--- NOTE | 2021-05-29 14:47 | TELEMED_ITS ---
[facility] Telemed has confirmed receipt of a request for visit. This document confirms receipt of the order initiating the consult. To find the results of the consultation, please view the patient's reports for the scanned Telemed Consult.
--- NOTE | 2021-05-29 15:00 | PN.HOSP_ITS ---
Documented by User: Portillo WATTS 05/29/21 15:13 Subjective Subjective Patient is a 75-year-old female comfortably resting in bed, alert and orient x3. Patient reports chronic right upper extremity paresthesias, but denies noted she display any weakness in the upper or lower extremities bilaterally. Objective Data Objective Data Vital Signs: Vital Signs Temp Pulse Resp BP Pulse Ox 98.6 F 85 16 186/83 H 98 05/29/21 12:00 05/29/21 12:00 05/29/21 12:00 05/29/21 12:00 05/29/21 12:00 Oxygen Delivery Method Room Air Weight: 185 lb 13.595 oz Body Mass Index (BMI) 36.3 Intake & Output: Intake and Output for Last 24 Hours 05/27/21 05/28/21 05/29/21 23:59 23:59 23:59 Intake Total 1222 / 1222 420 / 420 Balance 1222 / 1222 420 / 420 Lab / Micro Data Result Diagrams: 05/29/21 06:50 05/29/21 06:50 Labs: Laboratory Results - last 24 hr 05/28/21 17:08: WBC 7.9, RBC 4.86, Hgb 13.9, Hct 40.6, MCV 83.5, MCH 28.6, MCHC 34.2, RDW Std Deviation 41.9, RDW Coeff of Anh 13.6, Plt Count 225, MPV 11.0, Immature Gran % (Auto) 0.400, Neut % (Auto) 62.5, Lymph % (Auto) 26.3, [place] % (Auto) 9.1, Eos % (Auto) 0.9, Baso % (Auto) 0.8, Absolute Neuts (auto) 4.9, Absolute Lymphs (auto) 2.07, Nucleated RBC % 0 05/28/21 17:08: PT 13.1, INR 1.1, APTT 25.8 05/28/21 17:08: Sodium 132 L, Potassium 4.1, Chloride 98, Carbon Dioxide 26.0, Anion Gap 8, BUN 18, Creatinine 0.79, Estim Creat Clear Calc 35.45, Est GFR (MDRD) Af Amer 92, Est GFR (MDRD) Non-Af 76, BUN/Creatinine Ratio 22.9 H, Glucose 153 H, Calcium 9.4 05/28/21 17:59: POC Glucose 146 H 05/28/21 18:30: Urine Color Yellow, Urine Clarity Clear, Urine pH 6.5, Ur Specific [place] 1.015, Urine Protein 15 H, Urine Glucose (UA) Normal, Urine Ketones 5 H, Urine Occult Blood Negative, Urine Nitrite Negative, Urine Bilirubin Negative, Urine Urobilinogen Normal, Ur Leukocyte Esterase Negative, Urine RBC 0 SEEN, Urine WBC 0 SEEN, Ur Squamous Epith Cells 0-5 SEEN, Urine Bacteria 0 SEEN, Urine Mucus 0 SEEN 05/28/21 22:22: POC Glucose 242 H 05/29/21 06:15: POC Glucose 200 H 05/29/21 06:50: WBC 5.9, RBC 4.82, Hgb 13.8, Hct 40.1, MCV 83.2, MCH 28.6, MCHC 34.4, RDW Std Deviation 40.6, RDW Coeff of Anh 13.4, Plt Count 157, MPV 10.3, Im mature Gran % (Auto) 0.500, Neut % (Auto) 58.6, Lymph % (Auto) 27.6, [place] % (Auto) 11.0 H, Eos % (Auto) 1.5, Baso % (Auto) 0.8, Absolute Neuts (auto) 3.5, Absolute Lymphs (auto) 1.63, Nucleated RBC % 0 05/29/21 06:50: Sodium 133 L, Potassium 3.6, Chloride 101, Carbon Dioxide 26.0, Anion Gap 6, BUN 13, Creatinine 0.57, Estim Creat Clear Calc 35.45, Est GFR (MDRD) Af Amer 133, Est GFR (MDRD) Non-Af 110, BUN/Creatinine Ratio 22.7 H, Glucose 177 H, Calcium 8.7, Total Bilirubin 0.60, AST 21, ALT 36, Alkaline Phosphatase 74, Total Protein 7.1, Albumin 3.7, Globulin 3.4, Albumin/Globulin Ratio 1.1, Triglycerides 125, Cholesterol 190, LDL Cholesterol 124, VLDL Cholesterol 25, HDL Cholesterol 41 05/29/21 06:50: Hemoglobin A1c 7.3 H 05/29/21 11:01: POC Glucose 212 H Radiography Diagnostic Testing: Radiology Impression Brain CT 05/28/21 17:20 IMPRESSION: There are no acute intracranial findings. Electronically Signed: Vitor García MD at 17:49 EDT , Chest X-Ray 05/28/21 19:00 IMPRESSION: Normal x-ray examination of the chest. Electronically Signed: Anthony Minor MD at 19:24 EDT , Echocardiogram 05/28/21 20:10 Interpretation Summary The study was technically difficult. Left ventricular systolic function is normal. The estimated ejection fraction is 65 %. The left atrium is mildly enlarged. There is mild mitral annular calcification. Mild focal mitral valve calcification of the anterior leaflet. The mitral papillary muscle appears thickened and/or calcified. Mild (1+) mitral valve insufficiency. Trivial tricuspid valve insufficiency. Mild focal aortic valve calcification. Mild (1+) pulmonic valve insufficiency. Calcified aortic root. Unable to estimate RV systolic pressure/pulmonary artery pressure due to technically difficult study. No evidence for diastolic dysfunction. Bubble contrast study negative for right to left interatrial shunt. Ordering Physician: Antonio Aquino Referring Physician: Tawnya Strauss Performed By: Prieto Thomas RCS Brain MRI 05/29/21 12:27 IMPRESSION: 1. Small to moderate size acute infarct of the superior medial/parasagittal region of the left frontal lobe extending into the centrum semiovale. A small component of the infarct also involves the left anterior aspect of the corpus callosum. No additional acute infarcts are present. 2. Involutional changes of the brain, as described above. Electronically Signed: Jose Angel Zhang MD at 14:45 EDT , Neck MRA 05/29/21 12:52 IMPRESSION: 1. No occlusion or hemodynamically significant stenosis of the bilateral cervical carotid and vertebral arteries. Electronically Signed: Jose Angel Zhang MD at 14:08 EDT , Physical Exam Const alert, oriented x3 and no apparent distress HEENT head/scalp atraumatic and moist oral mucous membranes Head and Scalp: normocephalic Eyes PERRL, EOMs intact bilaterally and conjunctivae normal Neck no lymphadenopathy, supple and no JVD Resp normal respiratory effort, no retractions and no use of accessory muscles Cardio regular rate, regular rhythm and no JVD GI normal to inspection, nondistended, normoactive bowel sounds Extremity normal to inspection Skin no rashes or lesions noted Neuro CN's II-XII intact bilaterally Neuro Narrative: Patient reports chronic right-sided paresthesias, although does not display any other focal neurological deficits. Psych affect normal Assessment & Plan Assessment/Plan (1) Acute CVA (cerebrovascular accident): PLAN: Day 1 Discharge planning: To be determined. 1) acute CVA Brain MRI demonstrates small to moderate sized acute infarct of the left frontal lobe extending into the centrum semiovale, infarct also involves the anterior aspect of the left corpus callosum. Brain MRA consistent with MRI, there is also diminished vascularity in old and infarcted parenchyma in the left occipital lobe. Neck MRA demonstrates no significant occlusion or stenosis. Echocardiogram shows normal LV systolic function, an EF of 65%, no evidence of diastolic dysfunction and a negative bubble study. Fasting lipid panel within normal limits. We will obtain SOC consult, continue NIHSS, continue aspirin and statin. 2) diabetes mellitus Diabetes appears to be well controlled, hemoglobin A1c 7.3. Continue home glimepiride and Januvia, hold metformin, Accu-Cheks assigned scale insulin ordered. Will advise patient to follow-up with primary care provider in regards to further titration of diabetic management. 3) HTN We will continue to hold home atenolol and triamterene/hydrochlorothiazide combo, will reinitiate on 4/2. As needed hydralazine and labetalol ordered. DVT prophylaxis - Lovenox Patient seen by Portillo Coker PA-C, under the supervision of Dr. Leal. Time spent on patient care: 10 minutes. Documented by User: Dr. Thao Leal MD 05/29/21 17:20 Objective Data Lab / Micro Data Result Diagrams: 05/29/21 06:50 05/29/21 06:50 Charges/Coding Addendum Addendum: This patient was seen in conjunction with MAC Owens. I have independently interviewed and examined the patient and reviewed pertinent historical, laboratory, and other data. Please refer to MAC Owens's note for his patient's presentation, findings, and recommendations. I have reviewed and his note and concur with his documentation Patient was seen and examined. She complains of paresthesia, acute on chronic in the upper extremities, worse on the left. Patient son was at bedside. Mom seem to have trouble talking. Says the mom is almost back to normal. MRI of the brain shows small to moderate sized acute infarct of the superior medial/parasagittal region of the left frontal lobe extending into the centrum semiovale. MRA head and neck unremarkable 2D echo showed EF of 65%, no valvular abnormal Lipid profile showed triglycerides 125, total cholesterol 190, LDL 124, HDL 41 HgbA1c 7.3 Tele-neurology consulted. 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 Acute left frontal ischemic stroke 2. Type II DM 3. Hyperlipidemia 4. Hypertension Plan: Recommended dual antiplatelet We will resume antihypertensive after 24 hours Continue to monitor blood sugars Visit Charges Inpatient E&M: 10699 Subs Hosp L2
--- NOTE | 2021-05-29 15:20 | CASEMGMT ---
Social Work PHQ-9 assessment completed due to being diagnosed with a stroke. Patient PHQ-9 score 03/26, no depression noted. Arlene GARCIA, NASRINS
--- NOTE | 2021-05-29 15:25 | CASEMGMT ---
This RN CM to room to complete CM assessment and pt is on phone at this time. CM to attempt again later. [place] RN CM
--- NOTE | 2021-05-29 15:37 | CASEMGMT ---
KAREN LANDRY assesment: Face to Face with patient for initial transition planning/care coordination assessment. RN FRANTZ introduced self and role at [facility], pt voices understanding and consents to assessment. Pt is sitting up in chair in no distress on room air. Pt is A/Ox4 and answers all questions appropriately. Care providers, pharmacy, and demographics verified. Presentation: Pt c/o bilat hand numbness since noon yesterday, w/ right leg weakness, slowed speech Admitting dx: Acute CVA PCP: Carlos A Specialists: None Preferred Pharmacy: [facility] Insurance: MCR A/B, anthem Prescription Benefit: [place] Living Will/HPOA: Pt states has LW/HPOA and is aware that they are not on file at [facility]. Pt states her son, Vivek Lozano, is HPOA. LNOK: Vivek Lozano, munir/HPOA; Michael Lozano, munir Living Arrangements: Pt lives with son, Vivek, on main level of 2 story home and states no concerns at home. Pt is independent with ADL's. Transportation: Pt drives self and states no transportation concerns. DME/HHC: Pt has the following DME: cane, grab bars, and tub bench. Pt states no need for any further DME. Pt states no hx of HHC or SNF in the past. Pt states no concerns with going home at time of discharge. Pt is retired. Pt does not smoke cigarettes or drink ETOH. Pt voices no further concerns/needs. CM to follow for therapy evals and any further discharge planning/needs. Advised pt to ask for CM if any further questions/concerns/needs arise, voices understanding. Pt Goal: Home Plan: Home [place] KAREN LANDRY
[2021-05-29 18:01] LABS: Bedside Glucose 208 mg/dL (74-106)
[2021-05-29] MEDS: 0.9% Saline Lock 10 ML Syringe IV (22:38)
[2021-05-29 22:46] LABS: Bedside Glucose 226 mg/dL (74-106)
[2021-05-30] VITALS (7 sets, daily range): BP systolic 146–186; BP diastolic 74–101; PULSE 74–91; RESP 16–18; TEMP 36.4–36.7; O2SAT 95–99; BMI 36.3
[2021-05-30] MEDS: Insulin Lispro 100 UNIT/ML INSULN.PEN SC ×2 (06:46→11:56)
[2021-05-30 06:51] LABS: Bedside Glucose 188 mg/dL (74-106)
[2021-05-30] MEDS: Glimepiride 4 MG Tablet PO (08:21)
[2021-05-30] MEDS: Aspirin 81 MG TAB.CHEW PO (08:21)
[2021-05-30] MEDS: Triamterene 37.5MG/Hctz 25MG Capsule 1 CAP PO (08:21)
[2021-05-30] MEDS: Atenolol 25 MG Tablet PO (08:22)
[2021-05-30] MEDS: LINAGLIPTIN 5 MG TABLET PO (08:22)
[2021-05-30] MEDS: Enoxaparin 40 MG/0.4 ML Syringe SC (08:22)
--- NOTE | 2021-05-30 09:07 | CASEMGMT ---
KAREN CM in to pt room, per therapy notes outpatient therapy recommended if needed. Pt sitting up in chair in no distress. Pt states she does not feel she needs to go to outpt therapy, she feels she is doing well. Pt states she does have canes at home and her son lives with her. She denies any homegoing needs.
--- NOTE | 2021-05-30 09:21 | NURSING ---
Per Ealr WATTS request, this RN called [facility] to request neurologist clarification on recommendations made for medications. Spoke with El at [facility] who placed a clinician to clinician consult and stated a neurologist would be calling Earl WATTS shortly.
--- NOTE | 2021-05-30 10:03 | PCM.DC ---
Discharge Instructions Diet Discharge Diet: No restrictions Activity Discharge Activity: Return to Normal Activity Weight Bearing Status: Weight bearing as tolerated Dressing / Incision Call your doctor if you observe: Fever of 101 or Higher, Numbness or Tingling, Shortness of breath, Dizziness, Chest pain, Increased palpitations (irregular heartbeat) and Calf discomfort Follow Up Care Please Follow Up With: Primary care provider When: Within the next two weeks. Test Results: Test results from this visit will be discussed in further detail at your follow-up appointment, if applicable. Discharge Plan Admission Admit Date/Time: 05/29/21 15:19 Primary Reason for Your Visit: Stroke Attending Provider: Thao Leal Primary Care Provider: Tawnya Strauss Instructions Additional Instructions / Restrictions: * Follow up with your primary care provider about your diabetic care. Your hemoglobin A1C was 7.3, your goal is below 7. * Follow up with your primary care provider if you cannot tolerate Atorvastatin. * Take aspirin and plavix together for 21 days, then aspirin thereafter. Discharge Orders/Prescriptions Prescriptions: New atorvastatin 40 mg Tablet 40 mg PO QHS Qty: 30 RF: 0 aspirin 81 mg Tablet,Chewable 81 mg PO BREAKFAST Qty: 30 RF: 0 clopidogrel [Plavix] 75 mg tablet 75 mg PO DAILY Qty: 21 RF: 0 Continued atenolol 25 mg tablet 25 mg PO BID RF: 0 triamterene-hydrochlorothiazid 37.5-25 mg capsule 1 cap PO DAILY RF: 0 metformin 1,000 mg tablet 1,000 mg PO BID RF: 0 glimepiride 4 mg tablet 4 mg PO DAILY RF: 0 Januvia 100 mg tablet 100 mg PO DAILY RF: 0 Referrals / Follow Up: Tawnya Strauss DO [Primary Care Provider] - Within 2 Weeks Disposition Disposition (needs filled in before D/C Order can be placed): Home, Self Care
--- NOTE | 2021-05-30 11:14 | PCM.DC.SUM ---
Providers Date of Admission: 05/29/21 Date of Discharge: 05/30/21 Primary Care Physician: Dr. Tawnya Strauss DO Reason For Visit: STROKE-LIKE SYMPTOMS Diagnosis Discharge Diagnosis (1) Acute CVA (cerebrovascular accident): Status: Acute Code(s): I63.9 - Cerebral infarction, unspecified Medications at Discharge Home Medications Januvia 100 mg PO DAILY 05/28/21 atenolol 25 mg PO BID 05/28/21 glimepiride 4 mg PO DAILY 05/28/21 metformin 1,000 mg PO BID 05/28/21 triamterene-hydrochlorothiazid 1 cap PO DAILY 05/28/21 aspirin 81 mg PO BREAKFAST #30 tab 05/30/21 atorvastatin 40 mg PO QHS #30 tab 05/30/21 clopidogrel [Plavix] 75 mg PO DAILY #21 tab 05/30/21 Hospital Course Procedures 2-D Echocardiogram and Transthoracic echo Summary of Care Provided Minutes Spent on Discharge: 20 Hospital Course: Patient is a 75-year-old female who was admitted to [facility] on 05/28/2021 for evaluation and management of strokelike symptoms. Hospital course and management as below. 1) acute CVA Brain MRI demonstrates small to moderate sized acute infarct of the left frontal lobe extending into the centrum semiovale, infarct also involves the anterior aspect of the left corpus callosum. Brain MRA consistent with MRI, there is also diminished vascularity in old and infarcted parenchyma in the left occipital lobe. Neck MRA demonstrates no significant occlusion or stenosis. Echocardiogram shows normal LV systolic function, an EF of 65%, no evidence of diastolic dysfunction and a negative bubble study. Fasting lipid panel within normal limits. SOC consult obtained and recommendations were reviewed. PT/OT eval ordered, therapy was recommended but patient denied any home-going needs on discharge. We will initiate dual antiplatelet therapy for patient for 21 days, and patient will continue taking aspirin thereafter. 30-day event monitor ordered, follow-up with primary care provider within the next 2 weeks. 2) diabetes mellitus Hemoglobin A1c 7.3, slightly above goal, recommend following up with your primary care provider for further titration of your diabetic management. Continue home diabetic regimen and follow-up with your primary care provider. 3) HTN Continue home atenolol and triamterene/hydrochlorothiazide. Patient seen by Portillo Coker PA-C, under the supervision of Dr. Leal. Time spent on patient care: 20 minutes. Physical Exam Narrative Patient is a 75-year-old female comfortably resting in a chair, very x3. Patient denies any focal neurological deficits noted she display any. Does not appear in acute distress. Const alert, oriented x3 and no apparent distress HEENT normocephalic, head/scalp atraumatic and hearing grossly normal bilaterally Eyes PERRL, EOMs intact bilaterally and conjunctivae normal Neck no lymphadenopathy, supple and no JVD Resp normal respiratory effort, no retractions and no use of accessory muscles Cardio regular rate, regular rhythm and no JVD GI normal to inspection, nondistended, normoactive bowel sounds Extremity normal to inspection Skin no rashes or lesions noted Neuro CN's II-XII intact bilaterally Psych affect normal Weight / BMI Weight Weight: 185 lb 13.595 oz Body Mass Index (BMI) 36.3 ABG / Lab / Microbiology Data Result Diagrams: 05/29/21 06:50 05/29/21 06:50 Laboratory: Laboratory Results - last 24 hr 05/29/21 11:01: POC Glucose 212 H 05/29/21 17:35: POC Glucose 208 H 05/29/21 22:34: POC Glucose 226 H 05/30/21 06:44: POC Glucose 188 H Radiography Diagnostic Testing: Radiology Impression Echocardiogram 05/28/21 20:10 Interpretation Summary The study was technically difficult. Left ventricular systolic function is normal. The estimated ejection fraction is 65 %. The left atrium is mildly enlarged. There is mild mitral annular calcification. Mild focal mitral valve calcification of the anterior leaflet. The mitral papillary muscle appears thickened and/or calcified. Mild (1+) mitral valve insufficiency. Trivial tricuspid valve insufficiency. Mild focal aortic valve calcification. Mild (1+) pulmonic valve insufficiency. Calcified aortic root. Unable to estimate RV systolic pressure/pulmonary artery pressure due to technically difficult study. No evidence for diastolic dysfunction. Bubble contrast study negative for right to left interatrial shunt. Ordering Physician: Antonio Aquino Referring Physician: Tawnya Strauss Performed By: Prieto Thomas RCS Head MRA 05/29/21 12:18 IMPRESSION: 1. Diminished/absent vascularity in the old infarcted parenchyma in the medial aspect of the left occipital lobe where there is cystic encephalomalacia/volume loss. 2. Acute infarct in the superior medial/parasagittal region of the left frontal lobe is in the A3 perforating branch distribution of the anterior cerebral artery. 3. There is no major vessel occlusion or hemodynamically significant stenosis. Electronically Signed: Jose Angel Zhang MD at 15:02 EDT Reading Location ID and State: / MD , Service support , Brain MRI 05/29/21 12:27 IMPRESSION: 1. Small to moderate size acute infarct of the superior medial/parasagittal region of the left frontal lobe extending into the centrum semiovale. A small component of the infarct also involves the left anterior aspect of the corpus callosum. No additional acute infarcts are present. 2. Involutional changes of the brain, as described above. Electronically Signed: Jose Angel Zhang MD at 14:45 EDT , ADDENDUM: 05/29/21 1645 IMPRESSION: 1. Small to moderate size acute infarct of the superior medial/parasagittal region of the left frontal lobe extending into the centrum semiovale. A small component of the infarct also involves the left anterior aspect of the corpus callosum. No additional acute infarcts are present. 2. Involutional changes of the brain, as described above. N.B. : The above Results were Read Back by Jose Angel Zhang MD to Bryn Ashley RN, and understanding confirmed on 05/29/2021 16:38:08 (ET). Electronically Signed: Jose Angel Zhang MD at 14:45 EDT , Neck MRA 05/29/21 12:52 IMPRESSION: 1. No occlusion or hemodynamically significant stenosis of the bilateral cervical carotid and vertebral arteries. Electronically Signed: Jose Angel Zhang MD at 14:08 EDT , D/C Instructions Discharge Diet: No restrictions Weight Bearing Status: Weight bearing as tolerated Call your doctor if you observe: Fever of 101 or Higher, Numbness or Tingling, Shortness of breath, Dizziness, Chest pain, Increased palpitations (irregular heartbeat) and Calf discomfort Please Follow Up With: Primary care provider When: Within the next two weeks. Meaningful Use Info Meaningful Use Diagnoses (Choose all that apply): Ischemic CVA CVA Therapy Assessed for PT,OT and/or ST?: Yes Ischemic Stroke Antithrombotic order at d/c?: Yes Dx of Atrial fib/flutter?: No Statins at discharge?: Yes Primary Dx Acute Ischemic CVA?: Yes IV tPA ordered during stay?: No Reason IV t-PA not ordered: Treatment not Indicated Discharge Plan Admission Admit Date/Time: 05/29/21 15:19 Primary Reason for Your Visit: Stroke Attending Provider: Thao Leal Primary Care Provider: Tawnya Strauss Instructions Additional Instructions / Restrictions: * Follow up with your primary care provider about your diabetic care. Your hemoglobin A1C was 7.3, your goal is below 7. * Follow up with your primary care provider if you cannot tolerate Atorvastatin. * Take aspirin and plavix together for 21 days, then aspirin thereafter. Discharge Orders/Prescriptions Prescriptions: New atorvastatin 40 mg Tablet 40 mg PO QHS Qty: 30 RF: 0 aspirin 81 mg Tablet,Chewable 81 mg PO BREAKFAST Qty: 30 RF: 0 clopidogrel [Plavix] 75 mg tablet 75 mg PO DAILY Qty: 21 RF: 0 Continued atenolol 25 mg tablet 25 mg PO BID RF: 0 triamterene-hydrochlorothiazid 37.5-25 mg capsule 1 cap PO DAILY RF: 0 metformin 1,000 mg tablet 1,000 mg PO BID RF: 0 glimepiride 4 mg tablet 4 mg PO DAILY RF: 0 Januvia 100 mg tablet 100 mg PO DAILY RF: 0 Other Ambulatory Orders: 30-Day Event Recorder (Routine) Location: None Selected Ordered By: Portillo WATTS Referrals / Follow Up: Tawnya Strauss DO [Primary Care Provider] - Within 2 Weeks Disposition Disposition (needs filled in before D/C Order can be placed): Home, Self Care
[2021-05-30 12:01] LABS: Bedside Glucose 278 mg/dL (74-106)
== END 2021-05-30 13:36 | disposition home or self-care (01) | DRG 65 ==
LOC: ED 19:35 → PCU 19:45
PROVIDERS: Nurse Practitioner; Admitting Provider Hospitalist; Emergency Provider Emergency Medicine; PCP Family Medicine; Visit Provider Internal Medicine
DX: I63.9 Cerebral infarction, unspecified (principal); E87.1 Hypo-osmolality and hyponatremia; E11.65 Type 2 diabetes mellitus with hyperglycemia; R47.01 Aphasia; H53.461 Homonymous bilateral field defects, right side; E78.5 Hyperlipidemia, unspecified; I10 Essential (primary) hypertension; R29.701 NIHSS score 1; R20.2 Paresthesia of skin; R41.89 Other symptoms and signs involving cognitive functions and awareness; Z79.82 Long term (current) use of aspirin; Z79.84 Long term (current) use of oral hypoglycemic drugs; Z79.899 Other long term (current) drug therapy
CPT/HCPCS: 36415; 70450; 70544; 70547; 70551; 71045; 80048; 80053; 80061; 81001; 82962; 83036; 85025; 85610; 85730; 92523; 92610; 93005; 93306; 97110; 97116; 97162; 97165; 97530; 97802; 99285; J7030; P9612; Q9957; A4216

== ENCOUNTER 2023-10-16 14:12 | Inpatient (IN) | payer MEDICARE, BC, SELFPAY ==
[2023-10-16] VITALS (12 sets, daily range): BP systolic 155–244; BP diastolic 61–110; PULSE 86–110; RESP 18–27; TEMP 36.1–36.7; O2SAT 95–100; BMI 33.3; BMI 30.7
--- NOTE | 2023-10-16 14:18 | CT_ITS ---
We are attempting to reach an attending provider to discuss findings. An addendum with communication details will be sent when the communication is complete. STUDY: CT BRAIN WITHOUT CONTRAST REASON FOR EXAM: Female, 78 years old. Neuro deficit, acute, stroke suspected Individualized dose optimization techniques were used for this CT. TECHNIQUE: Transaxial CT imaging of the brain was performed without administration of intravenous contrast material. COMPARISON: MRI 05/29/2021 FINDINGS: There are calcifications noted in the distal vertebral arteries. There are calcifications noted in the cavernous carotid arteries. This is consistent for atherosclerotic disease. Normal calvarium. Normal soft tissues. There is mild cerebral atrophy with widening of the extra-axial spaces and ventricular dilatation. There are areas of decreased attenuation within the white matter tracts of the supratentorial brain, consistent with microvascular disease changes. Normal basal ganglia and thalami. Normal brainstem. There is mild cerebellar atrophy. Empty sella sign. Old left occipital lobe infarct. Old right frontal lobe infarct. Old left frontal lobe infarct. There is no intracranial hemorrhage. There are no findings of an acute ischemic infarction. Normal visualized paranasal sinuses. ASPECTS Score for Acute Strokes: 12/07 CT/STROKE Brain/Head without Cont IMPRESSION: There are no acute findings. Chronic involutional changes of the brain. Electronically Signed: Vitor García MD at 14:32 EDT ,
--- NOTE | 2023-10-16 14:18 | EKG12_ITS ---
Test Reason : STROKE TEAM Blood Pressure : / mmHG Vent. Rate : 093 BPM Atrial Rate : 093 BPM P-R Int : 154 ms QRS Dur : 076 ms QT Int : 382 ms P-R-T Axes : 042 010 064 degrees QTc Int : 474 ms Sinus rhythm with Premature atrial complexes Inferior infarct , age undetermined Abnormal ECG Confirmed by EDSON MENDEZ, BLANCA ([id number]), international editorial producer TONO PELAEZ ([id number]) on 10/21/2023 6:45:57 AM Referred By: Confirmed By:FLORIDA SANDHU MD
--- NOTE | 2023-10-16 14:19 | CT_ITS ---
We are attempting to reach an attending provider to discuss findings. An addendum with communication details will be sent when the communication is complete. EXAM: CT ANGIOGRAPHY HEAD AND NECK WITH INTRAVENOUS CONTRAST CLINICAL INDICATION: Neuro deficit, acute, stroke suspected TECHNIQUE: [place] [facility] [place]/head and neck CT angiography protocol performed with intravenous contrast. This CT exam was performed using one or more of the following dose reduction techniques: automated exposure control, adjustment of the mA and/or kV according to patient size, and/or use of iterative reconstruction technique. MIP reconstructed images were created and reviewed. CONTRAST: IV 100mL [id number]-[id number] RADIATION DOSE: CTDIvol = 19.90 mGy, DLP = 703.07 mGy-cm COMPARISON: No relevant prior studies available. FINDINGS: HEAD: RIGHT ANTERIOR CEREBRAL ARTERY: Unremarkable. No occlusion or significant stenosis. Anterior communicating artery is present. No aneurysm. RIGHT MIDDLE CEREBRAL ARTERY: Unremarkable. No occlusion or significant stenosis. No aneurysm. RIGHT POSTERIOR CEREBRAL ARTERY: Unremarkable. No occlusion or significant stenosis. No aneurysm. RIGHT INTRACRANIAL INTERNAL CAROTID ARTERY: Unremarkable. No significant stenosis. No dissection or occlusion. RIGHT INTRACRANIAL VERTEBRAL ARTERY: Unremarkable. No significant stenosis. No dissection or occlusion. LEFT ANTERIOR CEREBRAL ARTERY: Unremarkable. No occlusion or significant stenosis. No aneurysm. LEFT MIDDLE CEREBRAL ARTERY: Unremarkable. No occlusion or significant stenosis. No aneurysm. LEFT POSTERIOR CEREBRAL ARTERY: Unremarkable. No occlusion or significant stenosis. No aneurysm. LEFT INTRACRANIAL INTERNAL CAROTID ARTERY: Unremarkable. No significant stenosis. No dissection or occlusion. LEFT INTRACRANIAL VERTEBRAL ARTERY: Unremarkable. No significant stenosis. No dissection or occlusion. BASILAR ARTERY: Unremarkable. No occlusion or significant stenosis. No aneurysm. OTHER VASCULATURE: There is calcified plaque formation of the right cavernous carotid artery, with a mild stenosis (less than 50%). ALL ABOVE CRITERIA BY NASCET. There is calcified plaque formation of the left cavernous carotid artery, with a mild stenosis (less than 50%). ALL ABOVE CRITERIA BY NASCET. No vascular malformation. NECK: RIGHT COMMON CAROTID ARTERY: Unremarkable. No significant stenosis. No dissection or occlusion. RIGHT EXTRACRANIAL INTERNAL CAROTID ARTERY: There is mild atherosclerotic plaque formation of the origin of the right internal carotid artery with less than 50% cross sectional diameter stenosis. ALL ABOVE CRITERIA BY NASCET. No dissection or occlusion. RIGHT EXTERNAL CAROTID ARTERY: Unremarkable. No occlusion. RIGHT EXTRACRANIAL VERTEBRAL ARTERY: Unremarkable. No significant stenosis. No dissection or occlusion. LEFT COMMON CAROTID ARTERY: Unremarkable. No significant stenosis. No dissection or occlusion. LEFT EXTRACRANIAL INTERNAL CAROTID ARTERY: There is mild atherosclerotic plaque formation of the origin of the left internal carotid artery with less than 50% cross sectional diameter stenosis. ALL ABOVE CRITERIA BY NASCET. No dissection or occlusion. LEFT EXTERNAL CAROTID ARTERY: Unremarkable. No occlusion. LEFT EXTRACRANIAL VERTEBRAL ARTERY: Unremarkable. No significant stenosis. No dissection or occlusion. BRACHIOCEPHALIC AND SUBCLAVIAN ARTERIES: Unremarkable as visualized. No occlusion or significant stenosis. LUNG APICES: Unremarkable as visualized. HEAD and NECK: BONES/JOINTS: There are degenerative findings of the cervical spine. No discrete lytic or blastic abnormalities. SOFT TISSUES: Unremarkable. OTHER FINDINGS: Post-processing of the images was performed, with axial imaging and 3D reconstruction. MIPS images were obtained. CAROTID STENOSIS REFERENCE USING NASCET CRITERIA: % ICA stenosis = (1 - narrowest ICA diameter/diameter of distal cervical ICA) x 100. Mild - <50% stenosis. Moderate - 50-69% stenosis. Severe - 70-94% stenosis. Near occlusion - 95-99% stenosis. Occluded - 100% stenosis. CT/STROKE CTA Head AND Neck W/Con IMPRESSION: 1. There is mild atherosclerotic plaque formation of the origin of the right internal carotid artery with less than 50% cross sectional diameter stenosis. ALL ABOVE CRITERIA BY NASCET. 2. There is mild atherosclerotic plaque formation of the origin of the left internal carotid artery with less than 50% cross sectional diameter stenosis. ALL ABOVE CRITERIA BY NASCET. 3. There is calcified plaque formation of the right cavernous carotid artery, with a mild stenosis (less than 50%). ALL ABOVE CRITERIA BY NASCET. 4. There is calcified plaque formation of the left cavernous carotid artery, with a mild stenosis (less than 50%). ALL ABOVE CRITERIA BY NASCET. Electronically Signed: Vitor García MD at 14:44 EDT ,
--- NOTE | 2023-10-16 14:21 | ED.VIS.STROK ---
HPI History of Present Illness Chief Complaint: Stroke Alert Informant: patient Narrative Narrative: Patient is a 78-year-old female with history of hypertension, diabetes mellitus and prior stroke presenting with acute neurologic symptoms and hypertension. Patient was at [facility].. She had an episode where she had a hard time getting her words out, had a facial droop and had a tremor on her right side. Her blood sugar was 227 per squad. She was noted to have a right visual field cut. Stroke alert was called and route. Patient currently states her symptoms have resolved and has no complaints. Denies any headache. Reports history of prior stroke but does not tell me what her actual symptoms were without stroke. She does correlate that stroke with having an injection in her eye for her glaucoma. Chart review shows the patient was evaluated in the hospital and discharged on 05/30/2021 for strokelike symptoms. Was found to have an acute infarct of the left frontal lobe. Has normal echo at that time. Symptoms of brought her to the emergency room for numbness of her bilateral hands and feet. Per family at that time patient was not acting like herself. [facility] Medical History (Updated 10/16/23 @ 15:[address] Kailyn Moore DO) Glaucoma Hyperlipidemia CVA (cerebral vascular accident) Non-smoker Hypertension Diabetes Home Medications ?Medication ?Instructions ?Recorded ?Last Taken ?Type atenolol 25 mg tablet 25 mg PO BID HEART 05/28/21 10/16/23 History glimepiride 4 mg tablet 4 mg PO DAILY 05/28/21 10/16/23 History metformin 1,000 mg tablet 1,000 mg PO BID 05/28/21 10/16/23 History sitagliptin phosphate 100 mg 100 mg PO DAILY 05/28/21 10/16/23 History tablet (Januvia) Allergy/AdvReac Type Severity Reaction Status Date / Time No Known Allergies Allergy Verified 05/28/21 16:44 Family History Other Diabetes Surgical History History of tonsillectomy Social History household members: other details: Her son lives with her housing: house Smoking Status: Never smoker alcohol intake: current alcohol intake frequency: a few times a month substance use type: does not use ROS ROS ED Constitutional Constitutional ED: Denies chills or fever(s) Eyes Eyes: Reports change in vision right, diplopia and other Details: Reported intermittent double vision that is squad Cardiovascular Cardiovascular: Denies chest pain Respiratory/Chest Respiratory/Chest: Denies cough Gastrointestinal Gastrointestinal: Denies nausea or vomiting Musculoskeletal Musculoskeletal: Denies arthralgias or myalgias Neurologic Neurologic: Reports other Details: Report of prior facial droop ; Denies headache(s), paresthesias or weakness Hematologic/Lymphatic Hematologic/Lymphatic: Denies easy bleeding or easy bruising EXAM Physical Exam Const Vital Signs: 10/16/23 14:12 10/16/23 14:13 10/16/23 14:13 Temperature 97.7 F L 97 F L Temperature Source Temporal Temporal Pulse Rate 95 110 H 95 Respiratory Rate 25 H 25 H Blood Pressure 209/85 H 244/110 H 209/85 H Blood Pressure Mean 126 154 126 Pulse Ox 96 96 Oxygen Delivery Method Room Air Room Air 10/16/23 14:18 10/16/23 14:18 10/16/23 14:48 Temperature Temperature Source Pulse Rate 99 92 Respiratory Rate 27 H 26 H Blood Pressure 216/84 H 179/81 H Blood Pressure Mean 128 113 Pulse Ox 96 96 95 Oxygen Delivery Method Room Air Room Air Room Air 10/16/23 15:13 10/16/23 15:18 10/16/23 15:30 Temperature Temperature Source Pulse Rate 99 108 H 95 Respiratory Rate 20 H 22 H 20 H Blood Pressure 191/82 H 198/87 H 206/90 H Blood Pressure Mean 118 124 128 Pulse Ox 98 97 95 Oxygen Delivery Method Room Air Room Air Room Air Positive well nourished and well developed General Appearance ED: well developed and NAD HEENT Reports moist mucous membranes Eyes PERRL and EOMs intact bilaterally Eyes Narrative: Visual field deficit of the right side of the bilateral eyes. Neck supple and no JVD Chest Wall inspection of chest normal Resp normal respiratory effort Cardio Rate: regular rate Rhythm: regular rhythm GI normal to inspection, nondistended, normoactive bowel sounds, soft to palpation and non-tender Extremity normal to inspection General Extremety ED: Negative for deformity General Extremity: Negative for deformity Neuro oriented x3 and no sensory deficits noted Sensorium / Orientation: alert, oriented to person, oriented to place and oriented to time Speech: speech normal Motor Exam: strength 5/5 throughout; Negative for general weakness Psych mental status grossly normal Skin no wounds NIHSS NIHSS Initial: 1a Level of Consciousness: 0 1b LOC Questions (Score 2 if aphasic/stupor): 0 1c LOC Commands (Only score 1st attempt): 0 2 Best Gaze (If aphasic, use reflexive mvmts.): 0 3 Visual: 2 4 Facial Palsy: 0 5 Motor Arm Right (UN = amputation/fusion): 0 5 Motor Arm Left: 0 6 Motor Leg Right: 0 6 Motor Leg Left: 0 8 Sensory (Aphasia/stupor=0 or 1, coma=2): 0 9 Best Language: 0 10 Dysarthria (mute, coma=2, intubated=UN): 0 11 Extinction and Inattention (only scored if +): 0 Total Score: 2 MDM MDM MDM Narrative Medical decision making narrative: Patient is evaluated for any acute but transient episode of neurologic symptoms including garbled speech and left facial droop as well as a tremor. The symptoms resolved prior to arrival. EMS did note right visual field deficit. Patient does have this persistent in the ER but patient does not feel that her vision is any different than normal. Does have a history of prior strokes. Has not been taking aspirin, Plavix or statin but is not entirely sure why. Last known well was 1330. Stroke alert is called and CT of the brain as well as CTA head and neck is obtained. Given patient has resolving neurologic symptoms with no debilitating symptoms will defer TNK at this time. This is discussed with myself and neurology, Dr. Mario. Patient does have an area of encephalomalacia of her left occipital which would be consistent with a right hemianopsia and I do question if the visual field cut is actually chronic. CT of the brain does not show any acute infarct and CTA does not show any acute process either. Case is discussed with on-call radiology. Patient is hypertensive in the ER. Per discussion with neurology will allow for permissive hypertension with goal blood pressure at this time for 180 systolic. Patient is given initial 10 mg IV labetalol for blood pressure control emergency room. Patient is hypertensive in the ER and I do question of this could be accelerated hypertension/hypertensive urgency. No signs of intracranial hemorrhage. Lab work otherwise normal. Patient otherwise asymptomatic. Will be admitted for further blood pressure management and stroke evaluation. Case discussed with physician, Dr. Kingston. History & Record Review Additional record(s) reviewed:: Prior inpatient record (See HPI-discharge summary for admission on 05/30/2021 for acute stroke) Lab Data Attestation: I reviewed the patient's lab results. Labs: Laboratory Results - last 24 hr 10/16/23 14:10 WBC 7.5 RBC 5.09 Hgb 14.2 Hct 43.0 MCV 84.5 MCH 27.9 MCHC 33.0 RDW Std Deviation 43.4 RDW Coeff of Anh 14.0 Plt Count 168 MPV 11.0 Immature Gran % (Auto) 0.400 Neut % (Auto) 54.5 Lymph % (Auto) 34.3 Emmet % (Auto) 8.5 Eos % (Auto) 1.6 Baso % (Auto) 0.7 Absolute Neuts (auto) 4.1 Absolute Lymphs (auto) 2.57 Nucleated RBC % 0 PT 13.6 INR 1.0 APTT 23.8 L Sodium 136 Potassium 4.2 Chloride 105 Carbon Dioxide 23.0 Anion Gap 8 BUN 14 Creatinine 0.72 Estim Creat Clear Calc 54.20 Est GFR (MDRD) Af Amer 101 Est GFR (MDRD) Non-Af 83 BUN/Creatinine Ratio 19.4 Glucose 218 H Calcium 9.6 Troponin I High Sens 35 Radiography Chest X-Ray - ED: 1 View, Read by ED Physician and No Acute Disease Diagnostic Testing: Clinical Impression(s) from Imaging Studies Brain CT 10/16/23 14:18 IMPRESSION: There are no acute findings. Chronic involutional changes of the brain. Electronically Signed: Vitor García MD at 14:32 EDT Reading Location ID and State: [facility] / [place] , Service support , ADDENDUM: 10/16/23 8415 IMPRESSION: There are no acute findings. Chronic involutional changes of the brain. N.B. : The above Results were Read Back by Vitor García MD to Kailyn Moore DO, and understanding confirmed on 10/16/2023 14:39:55 (ET). Electronically Signed: Vitor García MD at 14:32 EDT , Head/Neck CTA 10/16/23 14:19 IMPRESSION: 1. There is mild atherosclerotic plaque formation of the origin of the right internal carotid artery with less than 50% cross sectional diameter stenosis. ALL ABOVE CRITERIA BY NASCET. 2. There is mild atherosclerotic plaque formation of the origin of the left internal carotid artery with less than 50% cross sectional diameter stenosis. ALL ABOVE CRITERIA BY NASCET. 3. There is calcified plaque formation of the right cavernous carotid artery, with a mild stenosis (less than 50%). ALL ABOVE CRITERIA BY NASCET. 4. There is calcified plaque formation of the left cavernous carotid artery, with a mild stenosis (less than 50%). ALL ABOVE CRITERIA BY NASCET. Electronically Signed: Vitor García MD at 14:44 EDT , ADDENDUM: 10/16/23 1459 IMPRESSION: 1. There is mild atherosclerotic plaque formation of the origin of the right internal carotid artery with less than 50% cross sectional diameter stenosis. ALL ABOVE CRITERIA BY NASCET. 2. There is mild atherosclerotic plaque formation of the origin of the left internal carotid artery with less than 50% cross sectional diameter stenosis. ALL ABOVE CRITERIA BY NASCET. 3. There is calcified plaque formation of the right cavernous carotid artery, with a mild stenosis (less than 50%). ALL ABOVE CRITERIA BY NASCET. 4. There is calcified plaque formation of the left cavernous carotid artery, with a mild stenosis (less than 50%). ALL ABOVE CRITERIA BY NASCET. N.B. : The above Results were Read Back by Vitor García MD to Kailyn Moore DO, and understanding confirmed on 10/16/2023 14:53:25 (ET). Electronically Signed: Vitor García MD at 14:44 EDT , Rhythm Strip Rhythm Strip: Sinus Rhythm Rate: 93 Ectopy: None EKG Initial EKG: Attestation: I personally reviewed and interpreted this EKG as follows: Interpretation: Sinus Rhythm Comments: Normal sinus rhythm with PACs at a rate of 93 bpm Normal axis Normal intervals Normal ST segments Prior EKG tracings: available for review Prior: Unchanged Management Discussion w/another healthcare provider: Hospitalist and Radiologist Critical Care Time Critical Care Time: Yes Critical care time (excluding procedures): 30-74 minutes (32), Discussing w/Patient &/or Family/Test Engineer, Discussing w/Consultants and Arranging Admission or Transfer Discharge Plan Triage Chief Complaint: Stroke Alert ED Provider: Kailyn Moore Dx/Rx/DC Orders Clinical Impression: Hypertensive emergency, Hemianopia, homonymous, right Prescriptions: No Action atenolol 25 mg tablet 25 mg PO BID metformin 1,000 mg tablet 1,000 mg PO BID glimepiride 4 mg tablet 4 mg PO DAILY Januvia 100 mg tablet 100 mg PO DAILY Primary Care Provider: Tawnya Strauss Referrals: Tawnya Strauss DO [Primary Care Provider] - Print Language: Lao Disposition Disposition: Acute Care Hospital [facility]
[2023-10-16 14:42] LABS: Absolute Lymphocyte Count 2.57 X10^3/uL (0.83-4.51); Absolute Neutrophil Count 4.1 X10^3/uL (2.0-7.7); Basophil# 0.05 X10^3/uL; Basophil% 0.7 % (0-1); Eosinophil# 0.12 X10^3/uL; Eosinophils% 1.6 % (0-5); Hemoglobin 14.2 g/dL (12.0-15.0); Lymphocyte # 2.57 X10^3/ul (0.83-4.51); Lymphocyte % 34.3 % (19-41); Mean Corpuscular Hgb 27.9 pg (27.0-32.0); Mean Corpuscular Volume 84.5 fL (81-99); Monocyte# 0.64 X10^3/uL; Monocyte% 8.5 % (0-10); NRBC Flagged by Analyzer 0 % (0-5); Neutrophil # 4.09 X10^3/uL (2.7-7.7); Neutrophil % 54.5 % (47-70); Platelet Count 168 K/mm3 (150-450); RBC Distribution Width SD 43.4 fl (35.1-43.9); Red Blood Count 5.09 M/mm3 (4.2-5.4); White Blood Count 7.5 K/mm3 (4.4-11.0)
[2023-10-16 14:47] LABS: Prothrombin Time (Protime)PT. 13.6 SECONDS (11.7-14.9)
[2023-10-16 14:48] LABS: Partial Thromboplast Time 23.8 Seconds (24.1-36.2)
[2023-10-16 15:19] LABS: Anion Gap 8 (5-15); BUN 14 mg/dL (7-18); BUN/Creat Ratio 19.4 RATIO (10-20); Calcium,Total 9.6 mg/dL (8.5-10.1); Chloride 105 mmol/L (98-107); Creatinine, Serum 0.72 mg/dL (0.55-1.02); EST Glomerular Filtration Rate 83 mL/min (>60); Est Glom Filt Rate - Afr Amer 101 mL/min (>60); Glucose 218 mg/dL (74-106); Potassium 4.2 mmol/L (3.5-5.1); Sodium Level 136 mmol/L (136-145); Troponin-I HS 35 pg/mL (3.0-54.0)
--- NOTE | 2023-10-16 15:30 | PCM.HP.STD ---
HPI - General General Date of Admission: 10/16/23 Date of Service: 10/16/23 Chief Complaint: Right facial droop, dysarthria, right hand tremor HPI Narrative ISRAEL SANDOVAL, is a 78 F who presented to the emergency department at [facility] on 10/16/2023 with a chief complaint of right facial droop, right arm tremor and dysarthria. The patient was at [facility] and her symptoms started at 130. An NIH was 2 however symptoms are subsequently resolved. Of note, her blood pressure was markedly elevated on arrival with a systolic blood pressure of 240. The patient reports that she is not currently taking her aspirin, Plavix, or statin and she only takes 3 medicines for her blood sugar and 1 medicine for her blood pressure. It does not sound as if she follows regularly with a primary care physician. She does have diagnosis of previous stroke and was admitted here for her second stroke in 2021. She is not clear why she stopped taking her aspirin, Plavix, and statin. She states at this time she has no complaints. Stroke team was called prior to arrival. Vital signs on arrival showed a temperature of 97, heart rate 110, blood pressure 144/110, respiratory rate was 20, and oxygen saturations were 95% on room air. CBC is unremarkable. Coags are normal. Chemistry panel is unremarkable except for blood glucose level that is 218. Troponin was 35. CT of the brain showed chronic involutional changes from previous stroke with encephalomalacia but no acute findings were noted. CTA of the head and neck showed mild atherosclerotic plaque formation of the right and left internal carotid artery and right and left cavernous carotid artery all less than 50%. EKG was normal sinus rhythm with normal intervals and no ST-T wave changes concerning for acute ischemia. Chest x-ray is unremarkable. She was seen by [facility] neurology and they did not recommend tenecteplase at this time but did recommend initiating stat dose of aspirin and Plavix and reinitiating atorvastatin with admission for stroke workup. She was given IV labetalol emergency department to improve her blood pressure control and was at 190 at the time of admission. [facility] Medical History Glaucoma Hyperlipidemia CVA (cerebral vascular accident) Non-smoker Hypertension Diabetes Home Medications ?Medication ?Instructions ?Recorded ?Last Taken ?Type atenolol 25 mg tablet 25 mg PO BID HEART 05/28/21 10/16/23 History glimepiride 4 mg tablet 4 mg PO DAILY 05/28/21 10/16/23 History metformin 1,000 mg tablet 1,000 mg PO BID 05/28/21 10/16/23 History sitagliptin phosphate 100 mg 100 mg PO DAILY 05/28/21 10/16/23 History tablet (Januvia) Allergy/AdvReac Type Severity Reaction Status Date / Time No Known Allergies Allergy Verified 05/28/21 16:44 Family History Other Diabetes Surgical History History of tonsillectomy Social History (Updated 10/16/23 @ 15:[address] Heather Kingston DO) household members: other details: Her son lives with her housing: house Smoking Status: Never smoker alcohol intake: current alcohol intake frequency: a few times a month substance use type: does not use ROS ROS Narrative Current review of systems is all negative as her symptoms have all resolved. Symptoms prior to arrival are noted in HPI. Constitutional Constitutional: Denies anorexia, change in weight, chills, fatigue, fever(s), malaise, night sweats, weakness or other Eyes Eyes: Denies blurry vision, change in eye color, change in vision, discharge from eye(s), double vision, erythema, eye pain, loss of vision or other ENT HEENT: Denies abnormal hearing, dysphagia, ear pain, epistaxis, headache(s), hearing loss, nasal congestion, nasal discharge, post nasal drip, sinus pressure, sore throat or other Cardiovascular Cardiovascular: Denies chest pain, claudication, dyspnea on exertion, edema, lightheadedness, orthopnea, palpitations, paroxysmal nocturnal dyspnea, rapid heart rate, syncope or other Respiratory/Chest Respiratory/Chest: Denies cough, dyspnea, excessive phlegm production, hemoptysis, productive cough, shortness of breath at rest, shortness of breath with exertion, wheezing or other Gastrointestinal Gastrointestinal: Denies abdominal pain, coffee ground emesis, constipation, diarrhea, dyspepsia, hematemesis, hematochezia, loose stools, melena, nausea, vomiting or other Genitourinary Genitourinary: Denies burning urination, difficulty urinating, dysuria, hematuria, nocturia, urinary frequency, urinary hesitancy, urinary incontinence, urinary urgency or other Musculoskeletal Musculoskeletal: Denies arthralgias, back pain, joint pain, joint stiffness, joint swelling, myalgias, neck pain or other Neurologic Neurologic: Denies abnormal gait, abnormal speech, confusion, disequilibrium, dizziness, focal weakness, headache(s), numbness, paresthesias, seizure-like activity, seizures, syncope, tingling, tremor(s) or other Psychiatric Psychiatric: Denies anxiety, depression, homicidal ideation, suicidal ideation or other Endocrine Endocrinology: Denies change in body appearance, cold intolerance, excessive sweating, heat intolerance, polydipsia, polyuria or other Hematologic/Lymphatic Hematologic/Lymphatic: Denies anemia, easy bleeding, easy bruising, lymphadenopathy or other Allergic/Immunologic Allergic/Immunologic: Denies rhinitis, hives, eczemia, asthma or other Vital Signs Vital Signs Vital Signs: 10/16/23 14:12 10/16/23 14:13 10/16/23 14:13 Temperature 97.7 F L 97 F L Temperature Source Temporal Temporal Pulse Rate 95 110 H 95 Respiratory Rate 25 H 25 H Blood Pressure 209/85 H 244/110 H 209/85 H Blood Pressure Mean 126 154 126 Pulse Ox 96 96 Oxygen Delivery Method Room Air Room Air 10/16/23 14:18 10/16/23 14:18 10/16/23 14:48 Temperature Temperature Source Pulse Rate 99 92 Respiratory Rate 27 H 26 H Blood Pressure 216/84 H 179/81 H Blood Pressure Mean 128 113 Pulse Ox 96 96 95 Oxygen Delivery Method Room Air Room Air Room Air 10/16/23 15:13 Temperature Temperature Source Pulse Rate 99 Respiratory Rate 20 H Blood Pressure 191/82 H Blood Pressure Mean 118 Pulse Ox 98 Oxygen Delivery Method Room Air Weight Weight: 77.5 kg Body Mass Index (BMI) 33.3 Physical Exam Const alert, oriented x3, no apparent distress and well nourished; Negative for average body habitus Constitutional Narrative: Older, white female, obese, lying in bed, appears comfortable, nontoxic, nursing at bedside General Appearance: cooperative HEENT normocephalic, head/scalp atraumatic, hearing grossly normal bilaterally and moist oral mucous membranes HEENT Narrative: Upper dentures in place, Mallampati 3, no thrush Eyes PERRL, EOMs intact bilaterally and conjunctivae normal Eyes Narrative: No scleral icterus Neck no lymphadenopathy, supple and no JVD Resp normal respiratory effort, no retractions, no use of accessory muscles and clear to auscultation bilaterally Auscultation: Negative for rales, rhonchi or wheezes Cardio regular rate, regular rhythm, S1 normal heart sound, S2 normal heart sound, no murmurs, no rub and no clicks; Negative for no gallops Cardio Narrative: S4 gallop present GI normal to inspection, nondistended, normoactive bowel sounds, soft to palpation and non-tender Extremity no clubbing, cyanosis or edema Extremity Narrative: Radial and pedal pulses are 2+ bilaterally Skin No no rashes or lesions noted, no wounds, skin turgor normal, no petechiae and no mottling Skin Narrative: Intertriginous yeast noted under bilateral pannus Neuro oriented x3, CN's II-XII intact bilaterally, moves all extremities and no focal motor deficits Speech: speech normal Psych affect normal Psych Narrative: Pleasant, interacts appropriately, answers all questions Results Lab / Micro Data 10/16/23 14:10 10/16/23 14:10 Labs: Laboratory Results - last 24 hr 10/16/23 14:10: WBC 7.5, RBC 5.09, Hgb 14.2, Hct 43.0, MCV 84.5, MCH 27.9, MCHC 33.0, RDW Std Deviation 43.4, RDW Coeff of Anh 14.0, Plt Count 168, MPV 11.0, Immature Gran % (Auto) 0.400, Neut % (Auto) 54.5, Lymph % (Auto) 34.3, Lares % (Auto) 8.5, Eos % (Auto) 1.6, Baso % (Auto) 0.7, Absolute Neuts (auto) 4.1, Absolute Lymphs (auto) 2.57, Nucleated RBC % 0, PT 13.6, INR 1.0, APTT 23.8 L, Sodium 136, Potassium 4.2, Chloride 105, Carbon Dioxide 23.0, Anion Gap 8, BUN 14, Creatinine 0.72, Estim Creat Clear Calc 54.20, Est GFR (MDRD) Af Amer 101, Est GFR (MDRD) Non-Af 83, BUN/Creatinine Ratio 19.4, Glucose 218 H, Calcium 9.6, Troponin I High Sens 35 Imaging Radiology Impression Brain CT 10/16/23 14:18 IMPRESSION: There are no acute findings. Chronic involutional changes of the brain. Electronically Signed: Vitor García MD at 14:32 EDT , ADDENDUM: 10/16/23 1445 IMPRESSION: There are no acute findings. Chronic involutional changes of the brain. N.B. : The above Results were Read Back by Vitor García MD to Kailyn Moore DO, and understanding confirmed on 10/16/2023 14:39:55 (ET). Electronically Signed: Vitor García MD at 14:32 EDT , Head/Neck CTA 10/16/23 14:19 IMPRESSION: 1. There is mild atherosclerotic plaque formation of the origin of the right internal carotid artery with less than 50% cross sectional diameter stenosis. ALL ABOVE CRITERIA BY NASCET. 2. There is mild atherosclerotic plaque formation of the origin of the left internal carotid artery with less than 50% cross sectional diameter stenosis. ALL ABOVE CRITERIA BY NASCET. 3. There is calcified plaque formation of the right cavernous carotid artery, with a mild stenosis (less than 50%). ALL ABOVE CRITERIA BY NASCET. 4. There is calcified plaque formation of the left cavernous carotid artery, with a mild stenosis (less than 50%). ALL ABOVE CRITERIA BY NASCET. Electronically Signed: Vitor García MD at 14:44 EDT , ADDENDUM: 10/16/23 1459 IMPRESSION: 1. There is mild atherosclerotic plaque formation of the origin of the right internal carotid artery with less than 50% cross sectional diameter stenosis. ALL ABOVE CRITERIA BY NASCET. 2. There is mild atherosclerotic plaque formation of the origin of the left internal carotid artery with less than 50% cross sectional diameter stenosis. ALL ABOVE CRITERIA BY NASCET. 3. There is calcified plaque formation of the right cavernous carotid artery, with a mild stenosis (less than 50%). ALL ABOVE CRITERIA BY NASCET. 4. There is calcified plaque formation of the left cavernous carotid artery, with a mild stenosis (less than 50%). ALL ABOVE CRITERIA BY NASCET. N.B. : The above Results were Read Back by Vitor García MD to Kailyn Moore DO, and understanding confirmed on 10/16/2023 14:53:25 (ET). Electronically Signed: Vitor García MD at 14:44 EDT , Assessment & Plan Assessment/Plan (1) Dysarthria: (2) Facial droop: (3) Hypertensive emergency: (4) Hyperglycemia due to diabetes mellitus: (5) Intertriginous candidiasis: (6) Carotid artery stenosis: PLAN: Plan Right facial droop/dysarthria/right upper extremity tremor secondary to hypertensive emergency versus stroke/TIA -NIH 2 on arrival and now 0 -No tenecteplase given -Patient had previously been on aspirin, Plavix, and statin but is currently not taking these medications -Imaging shows old infarcts -Start aspirin 81 mg daily -Start Plavix 75 mg daily -Start atorvastatin 40 mg daily -Continue NIH via stroke order set -Check hemoglobin A1c -Check lipids -Check TSH -Check MRI -Check echocardiogram -PT/OT consultation -Case management/social work consultation for assistance with discharge planning -Patient's son lives with her -Neurology consultation -Will likely need event monitor at discharge Hypertensive emergency with history of hypertension -Blood pressure on arrival was systolic of 240 -Currently 190 after labetalol in the emergency department -Will treat with IV medication only at this point with goal blood pressure around 190 -Per med reconciliation it sounds like patient was only taking triamterene/hydrochlorothiazide at home -I highly doubt that this is adequate treatment for her blood pressure but will have to monitor -Will likely be able to reinitiate this tomorrow as long as she remains stable -Will need close follow-up after discharge -Ultimately goal blood pressure will be less than 130/80 DM-2 with hyperglycemia -On metformin, Januvia, and glimepiride at home -Patient states she is compliant with her diabetes medication -N.p.o. overnight but once able to eat will start cardiac/carb controlled diet -Check hemoglobin A1c -SSI -Accu-Cheks as ordered Carotid artery stenosis -No vascular surgery consultation required at this time as all stenosis is less than 50% -Recommend intense risk factor management -Aspirin, Plavix, atorvastatin -Outpatient follow-up History of stroke -It sounds the patient was not taking aspirin or Plavix or atorvastatin--> she is not clear how long she has been off these medications or why they were discontinued -Denies any allergies -Recommend aggressive risk factor management to prevent further issues -Based on imaging patient is a high risk for vascular dementia History of glaucoma -Ongoing outpatient management with ophthalmology Intertriginous candidiasis -Marked yeast noted in pannus folds -Topical nystatin powder 3 times daily Obesity -BMI 33.4 -Complicates treatment, prognosis, outcomes -Recommend weight loss DVT prophylaxis -Lovenox subcu daily CODE STATUS -DNR CCA with no intubation per discussion with patient prior to admission -Nursing was present at the time Charges/Coding Visit Charges Inpatient E&M: 28953 Init Hosp L2
[2023-10-16] MEDS: Aspirin 325 MG Tablet PO (15:39)
--- NOTE | 2023-10-16 15:45 | RAD_ITS ---
STUDY: XR Chest 1 View 10/16/2023 3:46 PM REASON FOR EXAM: Female, 78 years old. Neuro deficit, acute, stroke suspected COMPARISON: 05.28.21 TECHNIQUE: XR Chest 1 View FINDINGS: There is no demonstrated pleural abnormality. Normal heart size. Normal mediastinum. Normal bernardo. Prominent appearing increased interstitial lung markings. Normal visualized pulmonary arteries. There is atherosclerotic calcification of the aortic arch with tortuosity. There are diffuse degenerative changes of the visualized thoracic spine. There is degenerative osteoarthritis of the bilateral shoulders. There are no acute findings of the upper abdomen. RAD/Chest 1 View IMPRESSION: There are no acute findings. Electronically Signed: Vitor García MD at 16:20 EDT ,
[2023-10-16] MEDS: Labetalol (Prefilled) 20 MG/4 ML IV (15:49)
--- NOTE | 2023-10-16 16:01 | ED.RN ---
GAVE 10MG; 2ML OF LABETALOL PER DR LARES VERBAL ORDER, SO LESS THAN THE 20MG ORDERED. THIS WAS D/T BP BEING 209/98.
[2023-10-16 16:07] LABS: Bacteria 0 SEEN /hpf (None Seen); Mucous, Urine 0 SEEN /hpf (<or=2+)
[2023-10-16 16:15] LABS: Hemoglobin A1c 9.3 % (3.8-5.6)
[2023-10-16 16:27] LABS: Color, Urine Straw (Yellow); Glucose, Dipstick 100 mg/dl (Normal); Ketone-Dipstick Negative (Negative); Leukocyte Esterase-Dipstick 100 /ul (Negative); Nitrite-Dipstick Negative (Negative); Occult Blood-Urine 10 /ul (Negative); Protein-Dipstick 100 mg/dl (Negative); Urine Bilirubin Dipstick Negative (Negative); Urine Clarity Sl. Cloudy (Clear); Urine Urobilinogen Normal (Normal); Urine pH 6.5 (5.0 - 8.0)
[2023-10-16 16:52] LABS: Red Blood Cells-Urine 0-5 SEEN /hpf (0-5); Squamous Epithelial Cells - UA 0-5 SEEN /hpf (5-10); White Blood Cells 10-25 SEEN /hpf (0-5)
[2023-10-16] MEDS: Insulin Lispro 100 UNIT/ML INSULN.PEN SC ×2 (17:23→20:36)
[2023-10-16 17:36] LABS: Bedside Glucose 242 mg/dL (74-106)
[2023-10-16] MEDS: Atorvastatin Calcium 40 MG Tablet PO (20:35)
[2023-10-16] MEDS: Nystatin Powder 15gm Bottle 1 APPLIC TOPICAL (20:35)
[2023-10-16 21:14] LABS: Bedside Glucose 284 mg/dL (74-106)
[2023-10-17 00:38] VITALS: BP 210/86; PULSE 79; RESP 18; TEMP 37; O2SAT 96
[2023-10-17 04:40] VITALS: BP 185/79; PULSE 70; RESP 18; TEMP 36.6; O2SAT 98
[2023-10-17] MEDS: Nystatin Powder 15gm Bottle 1 APPLIC TOPICAL ×2 (04:45→15:22)
[2023-10-17 06:07] LABS: Absolute Lymphocyte Count 2.05 X10^3/uL (0.83-4.51); Absolute Neutrophil Count 4.3 X10^3/uL (2.0-7.7); Basophil# 0.04 X10^3/uL; Basophil% 0.6 % (0-1); Eosinophil# 0.12 X10^3/uL; Eosinophils% 1.7 % (0-5); Hematocrit 40.4 % (37-47); Hemoglobin 13.4 g/dL (12.0-15.0); Lymphocyte # 2.05 X10^3/ul (0.83-4.51); Lymphocyte % 28.3 % (19-41); Mean Corp Hgb Conc 33.2 g/dL (32-36); Mean Corpuscular Volume 84.3 fL (81-99); Mean Platelet Vol. 10.6 fl (6.2-12.0); Monocyte# 0.71 X10^3/uL; Monocyte% 9.8 % (0-10); NRBC Flagged by Analyzer 0 % (0-5); Neutrophil # 4.31 X10^3/uL (2.7-7.7); Neutrophil % 59.3 % (47-70); Platelet Count 154 K/mm3 (150-450); RBC Distribution Width CV 13.9 % (11.6-14.6); Red Blood Count 4.79 M/mm3 (4.2-5.4); White Blood Count 7.3 K/mm3 (4.4-11.0)
[2023-10-17] MEDS: Insulin Lispro 100 UNIT/ML INSULN.PEN SC ×3 (06:32→16:29)
[2023-10-17 06:47] LABS: ALB/GLOB Ratio 0.9 RATIO (0.9-2.4); AST(SGOT) 26 U/L (15-37); Alanine Aminotransfer ALT/SGPT 34 U/L (13-56); Albumin, Serum 3.3 g/dL (3.2-5.0); Alkaline Phosphatase 96 U/L (45-117); Anion Gap 8 (5-15); BUN 12 mg/dL (7-18); BUN/Creat Ratio 19.1 RATIO (10-20); Calcium,Total 9.2 mg/dL (8.5-10.1); Chloride 104 mmol/L (98-107); Cholesterol 200 mg/dL (200); Creatinine, Serum 0.63 mg/dL (0.55-1.02); EST Glomerular Filtration Rate 98 mL/min (>60); Est Glom Filt Rate - Afr Amer 118 mL/min (>60); Estimated Creatinine Clearance 56.25 ml/min; Globulin 3.6 g/dL (2.2-4.2); Glucose 190 mg/dL (74-106); High Density Lipoprotein 48 mg/dL; Magnesium 1.7 mg/dL (1.6-2.6); Phosphorus 3.4 mg/dL (2.5-4.9); Potassium 3.2 mmol/L (3.5-5.1); Protein, Total 6.9 g/dL (6.4-8.2); Sodium Level 137 mmol/L (136-145); Triglycerides 112 mg/dL; Very Low Density Lipoprotein 22 mg/dL (5-40)
[2023-10-17 06:51] LABS: Bedside Glucose 223 mg/dL (74-106)
--- NOTE | 2023-10-17 08:00 | MRI_ITS ---
EXAM: MR HEAD WITHOUT INTRAVENOUS CONTRAST CLINICAL INDICATION: Stroke. Right visual changes. Right facial droop. Prior stroke. TECHNIQUE: Multiplanar and multisequence MR images of the brain were obtained without intravenous contrast. COMPARISON: MRI brain without contrast 05/29/2021. CT head without contrast and CTA head and neck with contrast 06/16/2023. FINDINGS: BRAIN AND EXTRA-AXIAL SPACES: Old ischemic infarct with cystic encephalomalacia and atrophy around the left calcarine fissure with greater involvement of the left lingual gyrus. Old cystic infarct in the anterior left cingulate gyrus and the left superior frontal gyrus, previously acute. Old cystic infarct with focal atrophy in the right anterior cingulate gyrus is a new finding. Atrophy in the anterior body, rostrum and genu of the corpus callosum are new findings. Periventricular white matter T2 FLAIR hyperintensity foci in both cerebral hemispheres are chronic white matter ischemic changes. No intra- or extra-axial hemorrhage. No intracranial mass or mass effect. Posterior fossa structures are unremarkable. No hydrocephalus. Basal cisterns are patent. SELLA: Unremarkable. Normal sella turcica, pituitary gland, infundibular stalk, optic chiasm and hypothalamus. AUDITORY SYSTEM: Unremarkable. The internal auditory canals are patent. BONES/JOINTS: Unremarkable. No discrete lytic or blastic abnormalities. SINUSES: Unremarkable as visualized. Clear. MASTOID AIR CELLS: Unremarkable as visualized. Clear. ORBITS: Unremarkable as visualized. Both globes, extraocular muscles, optic nerves and retrobulbar fat appear unremarkable. VASCULATURE: Unremarkable as visualized. Normal flow voids in the major intracranial circulation. MRI/Brain without Contrast IMPRESSION: 1. Old ischemic infarct with cystic encephalomalacia and atrophy around the left calcarine fissure with greater involvement of the left lingual gyrus. This is unchanged. 2. Old cystic infarct in the left anterior cingulate gyrus and left superior frontal gyrus, previously acute when compared to 05/29/2021. 3. Old ischemic infarct in the right anterior cingulate gyrus and parenchymal atrophy in the anterior body, rostrum and genu of the corpus callosum are new findings when compared to 05/29/2021. 4. Increase chronic periventricular white matter ischemic changes in both cerebral hemispheres. 5. No MRI evidence of acute or subacute ischemic infarct. Electronically Signed: Bryn Doty MD at 11:55 EDT ,
--- NOTE | 2023-10-17 08:11 | PN.HOSP_ITS ---
Reason for Visit Reason for Visit: Diagnoses Candidiasis of skin and nail (10/16/23) Type 2 diabetes mellitus with hyperglycemia (10/16/23) Hypertensive emergency (10/16/23) Occlusion and stenosis of unspecified carotid artery (10/16/23) Facial weakness (10/16/23) Dysarthria and anarthria (10/16/23) Subjective Subjective Patient notes feeling well and back to her baseline with no recurrent neurological. Discussed plan of care which included compliance with her antiplatelet therapy and high antihypertensive medication as patient has not been taking these. She does report that she takes her diabetic medication but given A1c significantly elevated some concern this may not be the case. Patient denies fevers, chills, nausea, emesis, abdominal pain, chest pain or dyspnea. Objective Data Objective Data Vital Signs: Vital Signs Temp Pulse Resp BP Pulse Ox O2 Del Method 97.8 F 70 18 185/79 H 98 Room Air 10/17/23 04:40 10/17/23 04:40 10/17/23 04:40 10/17/23 04:40 10/17/23 04:40 10/17/23 04:40 Oxygen Delivery Method Room Air Weight: 167 lb 12.348 oz Body Mass Index (BMI) 30.7 Intake & Output: Intake and Output for Last 24 Hours 10/15/23 10/16/23 10/17/23 23:59 23:59 23:59 Intake Total 435 / 435 850 / 850 Output Total 200 / 1500 2200 / 2200 Balance 235 / -1065 -1350 / -1350 Lab / Micro Data 10/17/23 05:34 10/17/23 05:31 Labs: Laboratory Results - last 24 hr 10/16/23 14:10: WBC 7.5, RBC 5.09, Hgb 14.2, Hct 43.0, MCV 84.5, MCH 27.9, MCHC 33.0, RDW Std Deviation 43.4, RDW Coeff of Anh 14.0, Plt Count 168, MPV 11.0, Immature Gran % (Auto) 0.400, Neut % (Auto) 54.5, Lymph % (Auto) 34.3, [place] % (Auto) 8.5, Eos % (Auto) 1.6, Baso % (Auto) 0.7, Absolute Neuts (auto) 4.1, Absolute Lymphs (auto) 2.57, Nucleated RBC % 0, PT 13.6, INR 1.0, APTT 23.8 L, Sodium 136, Potassium 4.2, Chloride 105, Carbon Dioxide 23.0, Anion Gap 8, BUN 14, Creatinine 0.72, Estim Creat Clear Calc 54.20, Est GFR (MDRD) Af Amer 101, Est GFR (MDRD) Non-Af 83, BUN/Creatinine Ratio 19.4, Glucose 218 H, Hemoglobin A1c 9.3 H, Calcium 9.6, Troponin I High Sens 35 10/16/23 15:30: Urine Color Straw, Urine Clarity Sl. Cloudy, Urine pH 6.5, Ur Specific [place] 1.010, Urine Protein 100 H, Urine Glucose (UA) 100 H, Urine Ketones Negative, Urine Occult Blood 10 H, Urine Nitrite Negative, Urine Bilirubin Negative, Urine Urobilinogen Normal, Ur Leukocyte Esterase 100 H, Urine RBC 0-5 SEEN, Urine WBC 10-25 SEEN, Ur Squamous Epith Cells 0-5 SEEN, Urine Bacteria 0 SEEN, Urine Mucus 0 SEEN 10/16/23 17:18: POC Glucose 242 H 10/16/23 20:31: POC Glucose 284 H 10/17/23 05:31: Sodium 137, Potassium 3.2 L, Chloride 104, Carbon Dioxide 25.0, Anion Gap 8, BUN 12, Creatinine 0.63, Estim Creat Clear Calc 56.25, Est GFR (MDRD) Af Amer 118, Est GFR (MDRD) Non-Af 98, BUN/Creatinine Ratio 19.1, Glucose 190 H, Calcium 9.2, Phosphorus 3.4, Magnesium 1.7, Total Bilirubin 0.80, AST 26, ALT 34, Alkaline Phosphatase 96, Total Protein 6.9, Albumin 3.3, Globulin 3.6, Albumin/Globulin Ratio 0.9, Triglycerides 112, Cholesterol 200, LDL Cholesterol 130, VLDL Cholesterol 22, HDL Cholesterol 48, TSH 2.570 10/17/23 05:34: WBC 7.3, RBC 4.79, Hgb 13.4, Hct 40.4, MCV 84.3, MCH 28.0, MCHC 33.2, RDW Std Deviation 43.0, RDW Coeff of Anh 13.9, Plt Count 154, MPV 10.6, Immature Gran % (Auto) 0.300, Neut % (Auto) 59.3, Lymph % (Auto) 28.3, [place] % (Auto) 9.8, Eos % (Auto) 1.7, Baso % (Auto) 0.6, Absolute Neuts (auto) 4.3, Absolute Lymphs (auto) 2.05, Nucleated RBC % 0 10/17/23 06:31: POC Glucose 223 H Radiography Diagnostic Testing: Radiology Impression Brain CT 10/16/23 14:18 IMPRESSION: There are no acute findings. Chronic involutional changes of the brain. Electronically Signed: Vitor García MD at 14:32 EDT , ADDENDUM: 10/16/23 1445 IMPRESSION: There are no acute findings. Chronic involutional changes of the brain. N.B. : The above Results were Read Back by Vitor García MD to Kailyn Moore DO, and understanding confirmed on 10/16/2023 14:39:55 (ET). Electronically Signed: Vitor García MD at 14:32 EDT , Head/Neck CTA 10/16/23 14:19 IMPRESSION: 1. There is mild atherosclerotic plaque formation of the origin of the right internal carotid artery with less than 50% cross sectional diameter stenosis. ALL ABOVE CRITERIA BY NASCET. 2. There is mild atherosclerotic plaque formation of the origin of the left internal carotid artery with less than 50% cross sectional diameter stenosis. ALL ABOVE CRITERIA BY NASCET. 3. There is calcified plaque formation of the right cavernous carotid artery, with a mild stenosis (less than 50%). ALL ABOVE CRITERIA BY NASCET. 4. There is calcified plaque formation of the left cavernous carotid artery, with a mild stenosis (less than 50%). ALL ABOVE CRITERIA BY NASCET. Electronically Signed: Vitor García MD at 14:44 EDT , ADDENDUM: 10/16/23 1459 IMPRESSION: 1. There is mild atherosclerotic plaque formation of the origin of the right internal carotid artery with less than 50% cross sectional diameter stenosis. ALL ABOVE CRITERIA BY NASCET. 2. There is mild atherosclerotic plaque formation of the origin of the left internal carotid artery with less than 50% cross sectional diameter stenosis. ALL ABOVE CRITERIA BY NASCET. 3. There is calcified plaque formation of the right cavernous carotid artery, with a mild stenosis (less than 50%). ALL ABOVE CRITERIA BY NASCET. 4. There is calcified plaque formation of the left cavernous carotid artery, with a mild stenosis (less than 50%). ALL ABOVE CRITERIA BY NASCET. N.B. : The above Results were Read Back by Vitor García MD to Kailyn Moore DO, and understanding confirmed on 10/16/2023 14:53:25 (ET). Electronically Signed: Vitor García MD at 14:44 EDT Reading Location ID and State: [facility] / [place] , Service support , Chest X-Ray 10/16/23 15:45 IMPRESSION: There are no acute findings. Electronically Signed: Vitor García MD at 16:20 EDT , Rhythm Strip Rhythm Strip: Sinus Rhythm Rate: 93 Ectopy: None Physical Exam Narrative Physical Examination: General: Awake, alert, oriented x 3 and cooperative, seated upright in PCU bedside chair, in no apparent distress, no recurrent neurological symptoms. Skin: Normal color, normal turgor, no icterus, no cyanosis with occasional very staged ecchymoses. HEENT: AT/NC, EOMI, PERRLA, MMM. Lungs: Mildly diminished, > bases, no rales, ronchi or wheezing. Heart: Regular rate and rhythm; no gallop, rub audible. Abdomen: Soft, obese, NTTP, ND, normal BS, no appreciated HSM. Extremities: No cyanosis, clubbing, or edema. Neurological: Patient awake, alert, oriented as noted, cognitive function intact; pupils equally reactive to light and accommodation, cranial nerves grossly normal, moving all 4 extremities, no focal deficits, strength preserved, sensation appropriate, FTN/HTS intact, equivocal babinski. Psychiatric: Affect appears normal, no acute evidence of depressive or anxiety feelings. Assessment & Plan Assessment/Plan (1) TIA (transient ischemic attack): PLAN: Plan The patient is a 78 y/o F w/ PMHx: Obesity, HTN, HLD, Diabetes mellitus type II, Glaucoma who presents to the [facility] ED on 10/16/23 with onset of right facial droop, right upper extremity tremor and dysarthria with initial NIH stroke score 2 with symptoms subsequently resolving unfortunately noncompliant with aspirin, Plavix or statin. #1. Right facial droop/dysarthria/right upper extremity tremor secondary to hypertensive emergency and possible TIA with previous CVA history: Admitted to PCU, CTA of the head and neck in the ED with mild atherosclerotic plaque formation of the origin of the right and left internal carotid artery with less than 50% stenosis, calcific plaque formation of the right and left cavernous carotid with mild stenosis less 50%, MRI of the brain with old ischemic infarct with cystic encephalomalacia and atrophy around the left calcarine fissue with greater involvement of the left lingual gyrus unchanged, old cystic infarct left anterior cingulate gyrus and left superior frontal gyrus previously acute 05/2021, old ischemic infarct right anterior cingulate gyrus and parenchymal atrophy in the anterior body, rostrum and genu of the corpus callosum new compared to 05/29/2021, increase in previous chronic periventricular white matter ischemic changes in both cerebral hemispheres with no evidence of any acute or subacute ischemic infarct, previous echo noted during CVA evaluation 2021 with a negative bubble contrast study at that time however given concern for cardiac risk is etiology in addition to noncompliance more likely will repeat echocardiogram at this time, PT/OT/Speech/Nutrition evaluation per protocol. Initially allowed permissive hypertension however MRI with no evidence of acute stroke and per discussion with neurology will resume hydrochlorothiazide/triamterene combination at this time and if BP 160 or less then would opt to initiate lisinopril per discussion with neurology per their preference, maintain on asa/plavix combination for planned 21 days and following this transition to aspirin single therapy only, strongly statin therapy however patient is very reticent as she had muscle cramps with it previously recommended thus amenable only at that time to Zetia 10 mg daily which will be started per discussion with also neurology but if patient at a later date is amenable recommendation for Crestor 40 mg daily. FLP with total cholesterol 200, to glycerides 112, LDL 130, VLDL 22, HDL 48 with goal LDL < 70, TSH 2.570, magnesium 1.7. Maintain on fall and aspiration precautions. Per neurology recommendation additionally would plan for event monitor at discharge, follow-up with neurology they recommended in 4 to 6 weeks but in the community likely that will not be possible will request first available follow-up appointment as well as PCP follow-up. #2. Intertriginous candidiasis: Marked irritation in the pannus folds, continue nystatin topical. #3. Concern upon presentation for hypertensive emergency given #1: Initially given presentation maintained on permissive hypertension pending MRI brain, given no acute findings will reinitiate on hydrochlorothiazide/triamterene per most recent outpatient listed regimen, if BP less or equal to 160 would plan discharge and at follow-up with PCP per neurology recommendation would consider lisinopril as next agent if necessary. #4. Hyperlipidemia: Patient reticent to take statin, discussed and Zetia initiated 10 mg daily however strongly encouraged continued follow-up with PCP and if patient is amenable consideration of Crestor 40 mg daily, FLP obtained with total cholesterol 200, triglyceride 112, LDL 130, VLDL 22, HDL 48. #5. Diabetes mellitus type II with hyperglycemia, poorly controlled: Hold oral home regimen, continue home insulin regimen, ADA diet, accu checks w/ ISS, hemoglobin A1c obtained per stroke protocol noted to be 9.3%. Nutrition consulted. Given patient noncompliance with her antiplatelet therapy suspect likely especially given elevated A1c she has been noncompliant with her oral diabetic medication thus may need to consider aggressive early follow-up with continued recommendation of oral regimen treatment with repeat A1c prior to consideration of alternate therapies. #6. Hypokalemia: Admission K+ 3.2, magnesium 1.7, supplementation given, repeat level in AM. #7. Obesity: Weight loss and lifestyle changes encouraged. #8. DVT prophylaxis: Lovenox. #9. CODE STATUS: DNR CCA, no intubation. Charges/Coding Visit Charges Inpatient E&M: 66098 Subs Hosp L3
[2023-10-17 08:12] VITALS: O2SAT 97
[2023-10-17 08:30] VITALS: BP 211/82; PULSE 89; RESP 16; TEMP 36.5; O2SAT 98
[2023-10-17] MEDS: Aspirin 81 MG TAB.CHEW PO (08:44)
[2023-10-17] MEDS: Potassium Chloride Oral Tablet 20 MEQ 40 MEQ PO (08:44)
[2023-10-17] MEDS: Clopidogrel Bisulfate 75 MG Tablet PO (08:44)
[2023-10-17] MEDS: Enoxaparin 40 MG/0.4 ML Syringe SC (08:45)
--- NOTE | 2023-10-17 11:00 | CASEMGMT ---
RN CM Face to Face with patient for initial transition planning/care coordination assessment. RN CM introduced self and role at [facility]. Patient lying in bed, alert and oriented. Patient willing to participate in assessment and is able to answer all questions appropriately. Care providers, pharmacy, and demographics verified. Strata: 2 PCP: Carlos A Specialists: none Preferred Pharm[facility]: [facility]: yes Living Will/HPOA: yes, son Vivek Lozano LNOK: sons Living Arrangements: Patient lives with son in a single story home with 2 steps and railing to enter the home. Patient states she is independent at home. Transportation: Son DME/HHC: Patient has shower chair, raised toilet, cane, crutches, and walker at home. No previous HHC or SNF. Patient wishes to discharge home, denies need for home health at this time. Patient states he has no further needs or concerns at this time. CM to follow for discharge planning needs that may arise. Disposition Plan: Patient to discharge home with family support and follow-up plans in place. Hilda BATRES, RN, CM
[2023-10-17 12:04] LABS: Bedside Glucose 331 mg/dL (74-106)
[2023-10-17 12:45] VITALS: BP 177/77; PULSE 100; RESP 16; TEMP 36.7; O2SAT 95
--- NOTE | 2023-10-17 13:05 | ECHOCS_ITS ---
Version 2 Reason For Study: TIA/CVA Procedure This was a 2D Doppler, Color Flow transthoracic echocardiogram. The study was technically difficult. Contrast injection was performed. Exam performed portable in patient room. Left Ventricle Normal LV size. The estimated ejection fraction is 70 %. Unable to assess diastolic dysfunction. No regional wall motion abnormalities noted. Right Ventricle Normal RV size. Normal systolic function. Atria The left atrium is mildly enlarged. Normal right atrium. No doppler evidence for ASD. Mitral Valve There is moderate mitral annular calcification. There is no mitral valve stenosis. No mitral valve insufficiency. Tricuspid Valve There is no tricuspid stenosis. Unable to estimate RV systolic pressure due to inadequate jet, pulmonary artery pressure probably normal. Aortic Valve Trisinus/trileaflet aortic valve. There is no aortic stenosis. No aortic valve insufficiency. Pulmonic Valve There is no pulmonic valvular stenosis. No pulmonic valve insufficiency. Great Vessels Normal aortic root. Pericardium/Pleural No pericardial effusion. Medication Diluted definity 2ml given slow IV push to enhance endocardial definition. MMode/2D Measurements & Calculations LVIDd: 3.5 cm IVSd: 0.87 cm Ao root diam: 3.2 cm LVIDs: 2.5 cm LVPWd: 0.93 cm LA dimension: 3.4 cm FS: 28.8 % LAV(MOD-bp): 41.2 ml LVAd ap4: 26.4 cm2 SV(MOD-sp4): 48.5 ml LAV(MOD-bp) Indexed: 23.3 ml/m2 LVLd ap4: 7.3 cm LAV(MOD-sp2): 48.0 ml EDV(MOD-sp4): 76.9 ml LAV(MOD-sp4): 33.8 ml EDV(sp4-el): 80.8 ml LVAs ap4: 14.0 cm2 LVLs ap4: 5.9 cm ESV(MOD-sp4): 28.4 ml ESV(sp4-el): 28.0 ml EF(MOD-sp4): 63.0 % EF(sp4-el): 65.4 % SV(sp4-el): 52.8 ml LA A4 area: 14.8 cm2 RA A4 area: 11.7 cm2 Time Measurements MV dec time: 0.20 sec Doppler Measurements & Calculations MV E max rayray: 45.5 cm/sec Lat Peak E' Rayray: 10.0 cm/sec Med Peak E' Rayray: 5.4 cm/sec MV A max rayray: 104.2 cm/sec E/E' lat: 4.6 E/E' med: 8.4 MV E/A: 0.44 MV V2 max: 122.0 cm/sec MV P1/2t max rayray: 57.0 cm/sec Ao V2 max: 140.3 cm/sec MV max P.0 mmHg MV P1/2t: 66.0 msec Ao max P.9 mmHg MV V2 mean: 55.1 cm/sec Ao V2 mean: 88.8 cm/sec MV mean P.6 mmHg MV dec slope: 253.0 cm/sec2 Ao mean P.7 mmHg MV V2 VTI: 17.0 cm MVA(P1/2t): 3.3 cm2 Ao V2 VTI: 22.1 cm AV (velocity ratio): 0.81 LV V1 max: 111.4 cm/sec PA V2 max: 137.7 cm/sec LV V1 max P.0 mmHg PA max PG (full): -0.05 mmHg LV V1 mean P.4 mmHg PA V2 mean: 83.5 cm/sec LV V1 mean: 71.3 cm/sec PA mean PG (full): -0.40 mmHg LV V1 VTI: 17.9 cm ECHO/Echo Complete W/ Contrast Interpretation Summary The estimated ejection fraction is 70 %. Unable to assess diastolic dysfunction. The left atrium is mildly enlarged. Ordering Physician: Neida Becerra Referring Physician: Tawnya Strauss Performed By: Prieto Thomas RCS
[2023-10-17 14:18] VITALS: BMI 30.7
--- NOTE | 2023-10-17 14:37 | CASEMGMT ---
SW completed a PHQ 9 with patient as she may have had a TIA. Patient scored a 0 which indicates no depression. Patient denied any need for resources. Carola MENON
[2023-10-17] MEDS: Triamterene 37.5MG/Hctz 25MG Capsule 1 CAP PO (15:22)
[2023-10-17] MEDS: Ezetimibe 10 MG Tablet PO (15:22)
[2023-10-17 15:47] VITALS: BP 158/87; PULSE 92; RESP 16; TEMP 36.6; O2SAT 95
[2023-10-17 16:49] LABS: Bedside Glucose 277 mg/dL (74-106)
[2023-10-17 17:00] VITALS: BMI 30.7
--- NOTE | 2023-10-17 17:21 | DCINST_ITS ---
Discharge Instructions Diet Discharge Diet: 1800 Calorie Control Diet Activity Discharge Activity: Return to Normal Activity May resume sexual activity in: No Restrictions Follow Up Care Test Results: Test results from this visit will be discussed in further detail at your follow- up appointment, if applicable. Discharge Plan Admission Admit Date/Time: 10/16/23 15:16 Primary Reason for Your Visit: TIA, HTN Emergency, Medication noncompliance, Intertrigo candidiasis Attending Provider: Neida Becerra Primary Care Provider: Tawnya Strauss Consulting Providers: Hemant Andrade; Felicity Thomson; Elaine Carter; Chelsea Fernandez; Hattie Ross; Alexander Mario; Mariam Manzano; Estuardo Chin; Natanael Fuentes; Hernesto Couch; Darling Casanova; Hung Ha; Anabell Vu; Elizabeth Sadnoval; Jurgen Escobar; New Sellers; Heidi Aiken; Antione Kaur; Glendy Kingston; Jamaal Lopez; Heather Kingston Instructions Additional Instructions / Restrictions: REVIEW OF CARE AND FOLLOW-UP PLAN: TRANSIENT ISCHEMIC ATTACK: --CTA of the head and neck in the ED with mild atherosclerotic plaque formation of the origin of the right and left internal carotid artery with less than 50% stenosis, calcific plaque formation of the right and left cavernous carotid with mild stenosis less 50%. --MRI of the brain with old ischemic infarct with cystic encephalomalacia and atrophy around the left calcarine fissue with greater involvement of the left lingual gyrus unchanged, old cystic infarct left anterior cingulate gyrus and left superior frontal gyrus previously acute 05/2021, old ischemic infarct right anterior cingulate gyrus and parenchymal atrophy in the anterior body, rostrum and genu of the corpus callosum new compared to 05/29/2021, increase in previous chronic periventricular white matter ischemic changes in both cerebral hemispheres with no evidence of any acute or subacute ischemic infarct. --Echocardiogram w/ ECHO resulted with EF 70%, mildly enlarged left atrium. Prior bubble study negative. --Per discussion with neurology plan to continue baby aspirin as well as Plavix 75 mg both for 21 days and following this will de-escalate down to baby aspirin daily only. It is very important that you take these antiplatelets as recommended. --Per discussion with neurology restarted hydrochlorothiazide/triamterene combination with BP follow-up and then started low dose lisinopril 5 mg which will be continued at discharge to home. Please have early follow-up with you primary care to assure BP recheck to assure it is not too low or that it is still uncontrolled. You will need repeat basic metabolic panel in 1-2 weeks to assure renal function and electrolytes remain appropriate. --You have been started on zetia for your lipid treatment given your concerns about starting a statin with prior muscle pain associated. We strongly recommend considering crestor 40 mg daily as another trial option. You fasting lipid panel was total cholesterol 200, to glycerides 112, LDL 130, VLDL 22, HDL 48 with goal LDL < 70. --Your HgbA1c is significally elevated to 9.3% suggesting poorly controlled diabetes. There is concern about medication compliance with your oral diabetic regimen. We encourage these to for now be continued strictly and have follow-up repeat HgBA1c with primary care outpatient. If it remains elevated with medication and strict diabetic diet then likely you will need to consider regimen change/insulin addition. --Additionally, at discharge per Neurology recommendation holter monitor assessment where your heart rhythm may be monitored will be set-up to assure you are not having any irregular cardiac arrhythmia that puts you at risk for increased stroke that was not witnessed during her presentation. -Please follow-up with your primary care physician and neurology as recommended. SKIN INFECTION: --Upon admission you had noted fungal skin infection in your abdominal skin folds primarily. Please continue routine skin care with soap/water gentle cleansing and then application of topical nystatin following until the redness is completely resolved. Discharge Orders/Prescriptions Prescriptions: New clopidogrel 75 mg Tablet 75 mg PO DAILY 21 Days Qty: 21 0RF Rx Instructions: Continue plavix x 21 days with concurrent baby aspirin therapy, following will transition to asa baby daily only. triamterene-hydrochlorothiazid 37.5-25 mg Capsule 1 cap PO DAILY 30 Days Qty: 30 0RF Rx Instructions: May need adjusted pending BP trending and repeat labs. aspirin 81 mg Tablet,Chewable 81 mg PO BREAKFAST 30 Days Qty: 30 1RF lisinopril 5 mg Tablet 5 mg PO DAILY 30 Days Qty: 30 0RF Rx Instructions: Trend BP and adjust dose with PCP as needed. nystatin [[facility]] 100,000 unit/gram Powder 1 applic topical TID 14 Days Qty: 1 0RF Protocol: *Topical Application Instructions APPLICATION INSTRUCTIONS: Affected areas Rx Instructions: Continue until redness/yeast skin fold infection completely resolved. Gently cleans regions with soap/water, pat dry and then apply the topical nystatin powder. ezetimibe 10 mg Tablet 10 mg PO DAILY 30 Days Qty: 30 1RF Continued glimepiride 4 mg tablet 4 mg PO DAILY Januvia 100 mg tablet 100 mg PO DAILY Held metformin 1,000 mg tablet 1,000 mg PO BID Hold Instructions: Resume on 10/19/23. Hold until 10/19/23 and then may resume given recent CT with contrast. Discontinued atenolol 25 mg tablet 25 mg PO BID Other Ambulatory Orders: Cardiac Holter Monitor, 48 Hrs (Routine) Timeframe: 1 Day Facility: [facility] - Location: Cardiovascular Services Ordered By: Dr. Neida Becerra Referrals / Follow Up: Tawnya Strauss DO [Primary Care Provider] - (Follow-up in 2-3 days to have repeat evaluation, BP check, assure not dropping too low/make medication adjustments if need to increase. Plan repeat BMP in 1 week with PCP.) Jewel Montenegro MD [Non-Staff -Ordering Privileges] - (Please follow-up with neurology at first open visit, ideally per [facility] neurology recommendation in 4-6 weeks.) Disposition Disposition (needs filled in before D/C Order can be placed): Home, Self Care
--- NOTE | 2023-10-17 17:23 | PCM.DC.SUM ---
Providers Date of Admission: 10/16/23 Date of Discharge: 10/17/23 Primary Care Physician: Dr. Tawnya Strauss, Consultations 10/16/23 16:29 Consult: Tele-Neurology Routine Consulting Provider: [facility] Reason for Consult: Acute Ischemic Stroke/TIA EMERGENT Consult: No MD Notified: Yes Date Notified: 10/16/23 Time Notified: 16:46 Method of Notification: [facility] Service Nursing Unit Staff Notify [facility] of Tele-Neurology Consult: Yes Reason For Visit: STROKE Diagnosis Discharge Diagnosis (1) TIA (transient ischemic attack): Status: Acute Code(s): G45.9 - Transient cerebral ischemic attack, unspecified Plan: DISCHARGE DIAGNOSES: #1. Right facial droop/dysarthria/right upper extremity tremor secondary to hypertensive emergency and possible TIA with previous CVA history #2. Intertriginous candidiasis #3. Concern upon presentation for hypertensive emergency given #1 #4. Hyperlipidemia #5. Diabetes mellitus type II with hyperglycemia, poorly controlled #6. Hypokalemia #7. Obesity #8. CODE STATUS: DNR CCA, no intubation. Medications at Discharge Home Medications glimepiride 4 mg tablet 4 mg PO DAILY 05/28/21 metformin 1,000 mg tablet 1,000 mg PO BID 05/28/21 sitagliptin phosphate 100 mg tablet (Januvia) 100 mg PO DAILY 05/28/21 aspirin 81 mg chewable tablet 81 mg PO BREAKFAST 30 days #30 tabs 10/17/23 clopidogrel 75 mg tablet 75 mg PO DAILY 21 days #21 tabs 10/17/23 ezetimibe 10 mg tablet 10 mg PO DAILY 30 days #30 tabs 10/17/23 lisinopril 5 mg tablet 5 mg PO DAILY 30 days #30 tabs 10/17/23 nystatin 100,000 unit/gram topical powder (Nyamyc) 1 applic topical TID 14 days #1 BOTTLE 10/17/23 triamterene 37.5 mg-hydrochlorothiazide 25 mg capsule 1 cap PO DAILY 30 days #30 caps 10/17/23 Hospital Course Operations None Procedures 2-D Echocardiogram and EKG Summary of Care Provided Minutes Spent on Discharge: 35 Hospital Course: The patient is a 78 y/o F w/ PMHx: Obesity, HTN, HLD, Diabetes mellitus type II, Glaucoma who presentED to the [facility] ED on 10/16/23 with onset of right facial droop, right upper extremity tremor and dysarthria with initial NIH stroke score 2 with symptoms subsequently resolving unfortunately noncompliant with aspirin, Plavix or statin. Admitted to PCU, CTA of the head and neck in the ED with mild atherosclerotic plaque formation of the origin of the right and left internal carotid artery with less than 50% stenosis, calcific plaque formation of the right and left cavernous carotid with mild stenosis less 50%, MRI of the brain with old ischemic infarct with cystic encephalomalacia and atrophy around the left calcarine fissue with greater involvement of the left lingual gyrus unchanged, old cystic infarct left anterior cingulate gyrus and left superior frontal gyrus previously acute 05/2021, old ischemic infarct right anterior cingulate gyrus and parenchymal atrophy in the anterior body, rostrum and genu of the corpus callosum new compared to 05/29/2021, increase in previous chronic periventricular white matter ischemic changes in both cerebral hemispheres with no evidence of any acute or subacute ischemic infarct, previous echo noted during CVA evaluation 2021 with a negative bubble contrast study at that time however given concern for cardiac risk is etiology in addition to noncompliance more likely per neurology recommendation ECHO repeated w/ EF 70%, mildly enlarged left atrium. PT/OT/Speech/Nutrition evaluation per protocol. Initially allowed permissive hypertension however MRI with no evidence of acute stroke and per discussion with neurology resumed hydrochlorothiazide/triamterene combination with BP monitoring and then addition also of low dose lisinopril per discussion with neurology per their preference w/ plan further BP adjustment outpatient at PCP follow-up as well as follow-up BMP within 1-2 weeks, maintain on asa/plavix combination for planned 21 days and following this transition to aspirin single therapy only, strongly statin therapy however patient is very reticent as she had muscle cramps with it previously recommended thus amenable only at that time to Zetia 10 mg daily which will be started per discussion with also neurology but if patient at a later date is amenable recommendation for Crestor 40 mg daily. FLP with total cholesterol 200, to glycerides 112, LDL 130, VLDL 22, HDL 48 with goal LDL < 70, TSH 2.570, magnesium 1.7. Hemoglobin A1c obtained per stroke protocol noted to be 9.3% w/ nutrition consulted. Given patient noncompliance with her antiplatelet therapy suspect likely especially given elevated A1c she has been noncompliant with her oral diabetic medication thus may need to consider aggressive early follow-up with continued recommendation of oral regimen treatment with repeat A1c prior to consideration of alternate therapies. Per neurology recommendation additionally set-up event monitor at discharge. Patient discharged with plan for follow-up with neurology they recommended in 4 to 6 weeks as well as PCP. Additionally, notable evidence intertriginous candidiasis with initiation of nystatin topical with planned continuation at discharge. Patient discharged to home in stable condition with resolution of neurological symptoms. Weight / BMI Weight Weight: 167 lb 12.348 oz Body Mass Index (BMI) 30.7 ABG / Lab / Microbiology Data 10/17/23 05:34 10/17/23 05:31 Laboratory: Laboratory Results - last 24 hr 10/16/23 17:18: POC Glucose 242 H 10/16/23 20:31: POC Glucose 284 H 10/17/23 05:31: Sodium 137, Potassium 3.2 L, Chloride 104, Carbon Dioxide 25.0, Anion Gap 8, BUN 12, Creatinine 0.63, Estim Creat Clear Calc 56.25, Est GFR (MDRD) Af Amer 118, Est GFR (MDRD) Non-Af 98, BUN/Creatinine Ratio 19.1, Glucose 190 H, Calcium 9.2, Phosphorus 3.4, Magnesium 1.7, Total Bilirubin 0.80, AST 26, ALT 34, Alkaline Phosphatase 96, Total Protein 6.9, Albumin 3.3, Globulin 3.6, Albumin/Globulin Ratio 0.9, Triglycerides 112, Cholesterol 200, LDL Cholesterol 130, VLDL Cholesterol 22, HDL Cholesterol 48, TSH 2.570 10/17/23 05:34: WBC 7.3, RBC 4.79, Hgb 13.4, Hct 40.4, MCV 84.3, MCH 28.0, MCHC 33.2, RDW Std Deviation 43.0, RDW Coeff of Anh 13.9, Plt Count 154, MPV 10.6, Immature Gran % (Auto) 0.300, Neut % (Auto) 59.3, Lymph % (Auto) 28.3, Kingfisher % (Auto) 9.8, Eos % (Auto) 1.7, Baso % (Auto) 0.6, Absolute Neuts (auto) 4.3, Absolute Lymphs (auto) 2.05, Nucleated RBC % 0 10/17/23 06:31: POC Glucose 223 H 10/17/23 11:46: POC Glucose 331 H 10/17/23 16:27: POC Glucose 277 H Radiography Diagnostic Testing: Radiology Impression Brain MRI 10/17/23 08:00 IMPRESSION: 1. Old ischemic infarct with cystic encephalomalacia and atrophy around the left calcarine fissure with greater involvement of the left lingual gyrus. This is unchanged. 2. Old cystic infarct in the left anterior cingulate gyrus and left superior frontal gyrus, previously acute when compared to 05/29/2021. 3. Old ischemic infarct in the right anterior cingulate gyrus and parenchymal atrophy in the anterior body, rostrum and genu of the corpus callosum are new findings when compared to 05/29/2021. 4. Increase chronic periventricular white matter ischemic changes in both cerebral hemispheres. 5. No MRI evidence of acute or subacute ischemic infarct. Electronically Signed: Bryn Doty MD at 11:55 EDT , D/C Instructions Discharge Diet: 1800 Calorie Control Diet May resume sexual activity in: No Restrictions Meaningful Use Info Meaningful Use Meaningful Use Diagnoses (Choose all that apply): None applicable Ischemic Stroke Statin Dosing Therapy Reference: STATIN DOSE THERAPY REFERENCE: * Patients > 75 years receive moderate or high dose statin therapy. * Patients 75 years or YOUNGER should receive HIGH intensity statin dose unless contraindicated. You will be required to document reason for non-treatment if statin daily dose does not meet guidelines. HIGH DOSE STATIN THERAPY DAILY Atorvastatin > than or = to 40 mg Rosuvastatin > than or = to 20 mg Amlodipine + Atorvastatin > than or = to 2.5/40 mg Ezetimibe + Simvastatin 10/80 mg Simvastatin 80mg Discharge Plan Admission Admit Date/Time: 10/16/23 15:16 Primary Reason for Your Visit: TIA, HTN Emergency, Medication noncompliance, Intertrigo candidiasis Attending Provider: Neida Becerra Primary Care Provider: Tawnya Strauss Consulting Providers: Hemant Andrade; Felicity Thomson; Elaine Carter; Chelsea Fernandez; Hattie Ross; Alexander Mario; Mariam Manzano; Estuardo Chin; Natanael Fuentes; Hernesto Couch; Darling Casanova; Hung Ha; Anabell Vu; Elizabeth Sandoval; Jurgen Escobar; [place] Sellers; Heidi Aiken; Antione Kaur; Glendy Kingston; Jamaal Lopez; Heather Kingston Instructions Additional Instructions / Restrictions: REVIEW OF CARE AND FOLLOW-UP PLAN: TRANSIENT ISCHEMIC ATTACK: --CTA of the head and neck in the ED with mild atherosclerotic plaque formation of the origin of the right and left internal carotid artery with less than 50% stenosis, calcific plaque formation of the right and left cavernous carotid with mild stenosis less 50%. --MRI of the brain with old ischemic infarct with cystic encephalomalacia and atrophy around the left calcarine fissue with greater involvement of the left lingual gyrus unchanged, old cystic infarct left anterior cingulate gyrus and left superior frontal gyrus previously acute 05/2021, old ischemic infarct right anterior cingulate gyrus and parenchymal atrophy in the anterior body, rostrum and genu of the corpus callosum new compared to 05/29/2021, increase in previous chronic periventricular white matter ischemic changes in both cerebral hemispheres with no evidence of any acute or subacute ischemic infarct. --Echocardiogram w/ ECHO resulted with EF 70%, mildly enlarged left atrium. Prior bubble study negative. --Per discussion with neurology plan to continue baby aspirin as well as Plavix 75 mg both for 21 days and following this will de-escalate down to baby aspirin daily only. It is very important that you take these antiplatelets as recommended. --Per discussion with neurology restarted hydrochlorothiazide/triamterene combination with BP follow-up and then started low dose lisinopril 5 mg which will be continued at discharge to home. Please have early follow-up with you primary care to assure BP recheck to assure it is not too low or that it is still uncontrolled. You will need repeat basic metabolic panel in 1-2 weeks to assure renal function and electrolytes remain appropriate. --You have been started on zetia for your lipid treatment given your concerns about starting a statin with prior muscle pain associated. We strongly recommend considering crestor 40 mg daily as another trial option. You fasting lipid panel was total cholesterol 200, to glycerides 112, LDL 130, VLDL 22, HDL 48 with goal LDL < 70. --Your HgbA1c is significally elevated to 9.3% suggesting poorly controlled diabetes. There is concern about medication compliance with your oral diabetic regimen. We encourage these to for now be continued strictly and have follow-up repeat HgBA1c with primary care outpatient. If it remains elevated with medication and strict diabetic diet then likely you will need to consider regimen change/insulin addition. --Additionally, at discharge per Neurology recommendation holter monitor assessment where your heart rhythm may be monitored will be set-up to assure you are not having any irregular cardiac arrhythmia that puts you at risk for increased stroke that was not witnessed during her presentation. -Please follow-up with your primary care physician and neurology as recommended. SKIN INFECTION: --Upon admission you had noted fungal skin infection in your abdominal skin folds primarily. Please continue routine skin care with soap/water gentle cleansing and then application of topical nystatin following until the redness is completely resolved. Discharge Orders/Prescriptions Prescriptions: New clopidogrel 75 mg Tablet 75 mg PO DAILY 21 Days Qty: 21 0RF Rx Instructions: Continue plavix x 21 days with concurrent baby aspirin therapy, following will transition to asa baby daily only. triamterene-hydrochlorothiazid 37.5-25 mg Capsule 1 cap PO DAILY 30 Days Qty: 30 0RF Rx Instructions: May need adjusted pending BP trending and repeat labs. aspirin 81 mg Tablet,Chewable 81 mg PO BREAKFAST 30 Days Qty: 30 1RF lisinopril 5 mg Tablet 5 mg PO DAILY 30 Days Qty: 30 0RF Rx Instructions: Trend BP and adjust dose with PCP as needed. nystatin [[facility]] 100,000 unit/gram Powder 1 applic topical TID 14 Days Qty: 1 0RF Protocol: *Topical Application Instructions APPLICATION INSTRUCTIONS: Affected areas Rx Instructions: Continue until redness/yeast skin fold infection completely resolved. Gently cleans regions with soap/water, pat dry and then apply the topical nystatin powder. ezetimibe 10 mg Tablet 10 mg PO DAILY 30 Days Qty: 30 1RF Continued glimepiride 4 mg tablet 4 mg PO DAILY Januvia 100 mg tablet 100 mg PO DAILY Held metformin 1,000 mg tablet 1,000 mg PO BID Hold Instructions: Resume on 10/19/23. Hold until 10/19/23 and then may resume given recent CT with contrast. Discontinued atenolol 25 mg tablet 25 mg PO BID Other Ambulatory Orders: Cardiac Holter Monitor, 48 Hrs (Routine) Timeframe: 1 Day Facility: [facility] - Location: Cardiovascular Services Ordered By: Dr. Neida Becerra Referrals / Follow Up: Tawnya Strauss DO [Primary Care Provider] - (Follow-up in 2-3 days to have repeat evaluation, BP check, assure not dropping too low/make medication adjustments if need to increase. Plan repeat BMP in 1 week with PCP.) Jewel Montenegro MD [Non-Staff -Ordering Privileges] - (Please follow-up with neurology at first open visit, ideally per [facility] neurology recommendation in 4-6 weeks.) Disposition Disposition (needs filled in before D/C Order can be placed): Home, Self Care Charges/Coding Visit Charges Inpatient E&M: 29771 Disch Hosp >30min
--- NOTE | 2023-10-17 18:21 | STROKE.CONS ---
Assessment and Plan: Stroke Assessment/Plan #high risk TIA- likely 2/2 intracranial atherosclerosis. -Start dual antiplatelet therapy with ASA 81+ Plavix for a total of 21 days. On 11/07/2023, plavix should be discontinued and patient should remain on ASA 81 monotherapy. -Discussed statin with patient. She previously had myalgia with lipitor and wants to discuss with PCP prior to trying an alternative statin. I suggested a trial of Crestor, but the patient wants to discuss with her PCP first. As an alterantive for now, will start Zetia 10 daily with a consideration for crestor as an outpatient. -Goal HbA1c is <7 and LDL <70. Currently the patient has an HbA1c 9.3 and LDL 130 -DM treatment per primary team -Gradual reduction of BP to 140-160 prior to discharge. Care Home goal normotension (120/80) to be achieved over next 2 weeks after discharge. Will need close follow up with PCP to track BP -MRI brain without evidence of stroke. -CTA head/neck: severe ICAD -TTE pending. Plan for 2-4 weeks of cardiac event monitor on discharge -fu with PCP in 2 weeks, neurology in 4-6 weeks HPI Consult Data Date of Consult: 10/17/23 HPI Narrative HPI Narrative: 78 yo F w PMH of HLD, HTN, DM, stroke (no residual deficts) Was playing bingo on 10/15 at 1:30pm. At that time noted R facial droop, RUE tremor, and dysarthria. Symptoms lasted for <10 minutes. Currently feels back to normal. No residual deficits from a prior stroke. Lives with son and functions independently, mRS 0. ?Not on AC/AP at home. SBP upon arrival in >200s. Subjective: Currently feels well, no complaints. ?? [facility] Medical History Glaucoma Hyperlipidemia CVA (cerebral vascular accident) Non-smoker Hypertension Diabetes Home Medications ?Medication ?Instructions ?Recorded ?Last Taken ?Type glimepiride 4 mg tablet 4 mg PO DAILY 05/28/21 10/16/23 History metformin 1,000 mg tablet 1,000 mg PO BID 05/28/21 10/16/23 History sitagliptin phosphate 100 mg 100 mg PO DAILY 05/28/21 10/16/23 History tablet (Januvia) aspirin 81 mg chewable tablet 81 mg PO BREAKFAST 30 days #30 tabs 10/17/23 Unknown Rx clopidogrel 75 mg tablet 75 mg PO DAILY 21 days #21 tabs 10/17/23 Unknown Rx ezetimibe 10 mg tablet 10 mg PO DAILY 30 days #30 tabs 10/17/23 Unknown Rx lisinopril 5 mg tablet 5 mg PO DAILY 30 days #30 tabs 10/17/23 Unknown Rx nystatin 100,000 unit/gram topical 1 applic topical TID 14 days #1 10/17/23 Unknown Rx powder ([facility]) BOTTLE triamterene 37.5 1 cap PO DAILY 30 days #30 caps 10/17/23 Unknown Rx mg-hydrochlorothiazide 25 mg capsule Allergy/AdvReac Type Severity Reaction Status Date / Time No Known Allergies Allergy Verified 05/28/21 16:44 Family History Other Diabetes Surgical History History of tonsillectomy Social History (Updated 10/16/23 @ 15:[address] Heather Kingston DO) household members: other details: Her son lives with her housing: house Smoking Status: Never smoker alcohol intake: current alcohol intake frequency: a few times a month substance use type: does not use Vital Signs Vital Signs Vital Signs: 10/16/23 20:20 10/16/23 20:40 10/16/23 20:40 Temperature 97.8 F Temperature Source Temporal Pulse Rate 86 Pulse Strength Weak (1+) Respiratory Rate 18 Respiratory Effort Respiratory Depth Respiratory Pattern Blood Pressure 200/83 H Blood Pressure Mean 122 Blood Pressure Source Blood Pressure Position Blood Pressure Location Pulse Ox 98 97 Oxygen Delivery Method Room Air Room Air 10/17/23 00:38 10/17/23 04:40 10/17/23 08:12 Temperature 98.6 F 97.8 F Temperature Source Temporal Temporal Pulse Rate 79 70 Pulse Strength Respiratory Rate 18 18 Respiratory Effort Respiratory Depth Respiratory Pattern Blood Pressure 210/86 H 185/79 H Blood Pressure Mean 127 114 Blood Pressure Source Monitor Blood Pressure Position Semi-Fowlers Blood Pressure Location Left Arm Pulse Ox 96 98 97 Oxygen Delivery Method Room Air Room Air Room Air 10/17/23 08:30 10/17/23 10:00 08/19/24 10:00 Temperature 97.7 F L Temperature Source Oral Pulse Rate 89 Pulse Strength Weak (1+) Respiratory Rate 16 Respiratory Effort Normal Non-Labored Respiratory Depth Normal Respiratory Pattern Normal Blood Pressure 211/82 H Blood Pressure Mean 125 Blood Pressure Source Monitor Blood Pressure Position Semi-Fowlers Blood Pressure Location Left Arm Pulse Ox 98 Oxygen Delivery Method Room Air Room Air 10/17/23 12:45 10/17/23 14:00 10/17/23 15:47 Temperature 98.0 F 97.8 F Temperature Source Oral Oral Pulse Rate 100 92 Pulse Strength Respiratory Rate 16 16 Respiratory Effort Normal Non-Labored Respiratory Depth Normal Respiratory Pattern Normal Blood Pressure 177/77 H 158/87 H Blood Pressure Mean 110 110 Blood Pressure Source Monitor Monitor Blood Pressure Position Sitting Sitting Blood Pressure Location Right Arm Right Arm Pulse Ox 95 95 Oxygen Delivery Method Room Air Room Air Room Air Weight Weight: 76.1 kg Body Mass Index (BMI) 30.7 EEG Results Procedure Details EEG Procedure Details: ISRAEL SANDOVAL is a 78 year old F with a past medical history of , who presents for evaluation of Electroencephalogram on DATE at TIME NIHSS NIHSS Nursing Documentation NIHSS Nursing Documentation: NIHSS: Ischemic Stroke/TIA Start: 10/16/23 16:29 Text: For PCU Patients: NIH and Neuro Check every 4 Status: Active hours, PRN and with change in RN caregiver. Freq: [id number] Protocol: Activity Type Activity Date Activity User E-sign Co-sign Detail Recorded Client Recorded Date Recorded By Document 10/17/23 12:45 desktop 10/17/23 13:00 10/17/23 12:45 NIH Stroke Scale [NIHSS] A score of 0 is normal or asymptomatic . Total possible score is 42. Inpatient: RN or Physician to activate a stroke alert for onset of new stroke symptoms or with NIHSS increase >/= 3 points. Following change in neurological status, NIHSS will be performed per physician order or more frequently PRN. -1a. Level of Consciousness Alert; keenly responsive -1b. LOC Questions Answers BOTH questions correctly. -1c. LOC Commands Performs both tasks correctly . -2. Best Gaze Normal -3. Visual Partial hemianopia -4. Facial Palsy Normal symmetrical movements -5a. Left Arm No drift; arm holds 90 (or 45 ) degrees for full 10 seconds -5b. Right Arm No drift; arm holds 90 (or 45 ) degrees for full 10 seconds -6a. Left Leg No drift; leg holds 30-degree position for full 5 seconds -6b. Right Leg No drift; leg holds 30-degree position for full 5 seconds -7. Limb Ataxia Absent -8. Sensory Normal; no sensory loss -9. Best Language No aphasia; normal -10. Dysarthria Normal -11. Extinction and Inattention No abnormality -Total 1 Query Text:A score of 0 is normal or asymptomatic. Total possible score is 42 . ED: Notify Physician for NIHSS increase by > / = 3 points. Inpatient: RN or Physician to activate a stroke alert for NIHSS increase of > / = 3 points. Coma Scale [Assess] -Eye Opening Spontaneous -Motor Obeys Commands -Verbal Oriented [Total] -Coma Scale Total 15 Physical Exam Narrative MS: awake, alert, oriented x 3, follows commands, able to name, no aphasia, no dysarthria CN: VFF, EOMI , no facial weakness, nml facial sensation M:? Antigravity in all extremities, no drift S: nml to LT in all extremities C: no dysmetria Lab / Micro Data 10/17/23 05:34 10/17/23 05:31 Labs: Laboratory Results - last 24 hr 10/16/23 20:31: POC Glucose 284 H 10/17/23 05:31: Sodium 137, Potassium 3.2 L, Chloride 104, Carbon Dioxide 25.0, Anion Gap 8, BUN 12, Creatinine 0.63, Estim Creat Clear Calc 56.25, Est GFR (MDRD) Af Amer 118, Est GFR (MDRD) Non-Af 98, BUN/Creatinine Ratio 19.1, Glucose 190 H, Calcium 9.2, Phosphorus 3.4, Magnesium 1.7, Total Bilirubin 0.80, AST 26, ALT 34, Alkaline Phosphatase 96, Total Protein 6.9, Albumin 3.3, Globulin 3.6, Albumin/Globulin Ratio 0.9, Triglycerides 112, Cholesterol 200, LDL Cholesterol 130, VLDL Cholesterol 22, HDL Cholesterol 48, TSH 2.570 10/17/23 05:34: WBC 7.3, RBC 4.79, Hgb 13.4, Hct 40.4, MCV 84.3, MCH 28.0, MCHC 33.2, RDW Std Deviation 43.0, RDW Coeff of Anh 13.9, Plt Count 154, MPV 10.6, Immature Gran % (Auto) 0.300, Neut % (Auto) 59.3, Lymph % (Auto) 28.3, Cascade % (Auto) 9.8, Eos % (Auto) 1.7, Baso % (Auto) 0.6, Absolute Neuts (auto) 4.3, Absolute Lymphs (auto) 2.05, Nucleated RBC % 0 10/17/23 06:31: POC Glucose 223 H 10/17/23 11:46: POC Glucose 331 H 10/17/23 16:27: POC Glucose 277 H Rhythm Strip Rhythm Strip: Sinus Rhythm Rate: 93 Ectopy: None Imaging Radiology Impression Brain MRI 10/17/23 08:00 IMPRESSION: 1. Old ischemic infarct with cystic encephalomalacia and atrophy around the left calcarine fissure with greater involvement of the left lingual gyrus. This is unchanged. 2. Old cystic infarct in the left anterior cingulate gyrus and left superior frontal gyrus, previously acute when compared to 05/29/2021. 3. Old ischemic infarct in the right anterior cingulate gyrus and parenchymal atrophy in the anterior body, rostrum and genu of the corpus callosum are new findings when compared to 05/29/2021. 4. Increase chronic periventricular white matter ischemic changes in both cerebral hemispheres. 5. No MRI evidence of acute or subacute ischemic infarct. Electronically Signed: Bryn Doty MD at 11:55 EDT , Active Medications Active Medications Active Medications: Current Medications Generic Name Dose Route Start Last Admin Trade Name Freq PRN Reason Stop Dose Admin Acetaminophen 650 mg 10/16/23 16:29 Acetaminophen 325 Mg Tablet PO Q4H PRN PRN Pain 1-10 Or Fever>99.6 Aspirin 81 mg 10/17/23 08:00 10/17/23 08:44 Aspirin 81 Mg Tab.Chew PO 81 mg BREAKFAST JENARO Administration Clopidogrel Bisulfate 75 mg 10/17/23 10:00 10/17/23 08:44 Clopidogrel Bisulfate 75 Mg Tablet PO 75 mg DAILY JENARO Administration Ezetimibe 10 mg 10/17/23 13:15 10/17/23 15:22 Ezetimibe 10 Mg Tablet PO 10 mg DAILY JENARO Administration Enoxaparin Sodium 40 mg 10/17/23 10:00 10/17/23 08:45 Enoxaparin 40 Mg/0.4 Ml Syringe SC 40 mg DAILY JENARO Administration Glucagon 1 mg 10/16/23 16:29 Glucagon 1 Mg/Ml Syringe IM X1 PRN HYPOGLYCEMIA Protocol Dextrose 250 mls @ 0 mls/hr 10/16/23 16:29 Dextrose 10%-Water IV .Q0M PRN HYPOGLYCEMIA Protocol As Directed Sodium Chloride 250 mls @ 15 mls/hr 10/16/23 16:37 IV .[id number] PRN Additional IVPB Infusion Sodium Chloride 250 mls @ 15 mls/hr 10/16/23 16:37 IV .[id number] PRN Saline Flush Insulin Human Lispro 0 unit 10/16/23 16:29 10/17/23 16:29 Insulin Lispro 100 Unit/Ml Insuln.Pen SC 6 u ACHS [facility] Administration Protocol Lisinopril 5 mg 10/18/23 10:00 Lisinopril 5 Mg Tablet PO DAILY [facility] Protocol Melatonin 3 mg 10/16/23 16:29 Melatonin 3 Mg Tablet PO QHS PRN PRN INSOMNIA Nystatin 1 applic 10/16/23 22:00 10/17/23 15:22 Nystatin Powder 15gm Bottle TOPICAL 1 applic TID [facility] Administration Protocol Ondansetron HCl 4 mg 10/16/23 16:29 Ondansetron 4 Mg/2 Ml Vial IV Q8H PRN PRN NAUSEA/VOMITING Sodium Chloride 10 - 40 ml 10/16/23 16:37 0.9% Saline Lock 10 Ml Syringe IV UD PRN SALINE FLUSH Triamterene/Hydrochlorothiazide 1 cap 10/17/23 13:15 10/17/23 15:22 Triamterene 37.5mg/Hctz 25mg Capsule PO 1 cap DAILY [facility] Administration Protocol
--- NOTE | 2023-10-17 18:25 | NURSING ---
NIH charted late due to pt on with Teleneurology when it was due, 1230 due and done at 1245 when teleneurology left.
[2023-10-17] MEDS: Lisinopril 5 MG Tablet PO (18:45)
== END 2023-10-17 18:59 | disposition home or self-care (01) | DRG 305 ==
LOC: ED 15:55 → PCU 16:00
PROVIDERS: Admitting Provider Internal Medicine; Emergency Provider Emergency Medicine; PCP Family Medicine; Visit Provider Family Medicine
DX: I16.1 Hypertensive emergency (principal); B37.2 Candidiasis of skin and nail; E11.65 Type 2 diabetes mellitus with hyperglycemia; E66.9 Obesity, unspecified; E87.6 Hypokalemia; I10 Essential (primary) hypertension; I65.23 Occlusion and stenosis of bilateral carotid arteries; Z68.33 Body mass index [BMI] 33.0-33.9, adult; H40.9 Unspecified glaucoma; Z79.84 Long term (current) use of oral hypoglycemic drugs; Z79.899 Other long term (current) drug therapy; Z66 Do not resuscitate; Z86.73 Personal history of transient ischemic attack (TIA), and cerebral infarction without residual deficits
CPT/HCPCS: 36415; 70450; 70496; 70498; 70551; 71045; 80048; 80053; 80061; 81001; 82962; 83036; 83735; 84100; 84443; 84484; 85025; 85610; 85730; 92610; 93005; 93306; 94668; 94762; 97162; 97166; 97802; 99285; Q9957; Q9967; A4216; C8929

== ENCOUNTER → 2023-11-15 | Outpatient (CLI) | payer MEDICARE, BC, SELFPAY | END | disposition home or self-care (01) | PROVIDERS: PCP Family Medicine; Referring Provider Family Medicine; Visit Provider Family Medicine | DX: G45.9 Transient cerebral ischemic attack, unspecified (principal) | CPT/HCPCS: 93225; 93226 ==